=== PATIENT | male | born 1950 | race Caucasian/White ===

== ENCOUNTER 2017-11-08 10:15 | Inpatient (IN) | payer MEDICARE, MEDICAID ==
[~2017-11-08] VITALS: Ht 172.7 cm; Wt 117.4 kg
[2017-11-08] VITALS (19 sets, daily range): BP systolic 108–149; BP diastolic 51–68; PULSE 72–117; RESP 16–28; TEMP 98.1–98.9; O2SAT 93–100
[~2017-11-08 10:15] MED LIST: FURO1TAB93 PO; LEVO.05 PO; OXYC5 PO; POTA10SO13 PO; SPIR100 PO; TRAM50 PO
[2017-11-08] MEDS ORDERED: PANTOPRAZOLE INJ 80 MG in SODIUM CHLORIDE 0.9% INJ 35 ML IV ONE (10:44)
[2017-11-08] MEDS ORDERED: OCTREOTIDE INJ 500 MCG in SODIUM CHLORID 0.9% 500 ML INJ 500 ML IV SCH (10:44)
[2017-11-08] MEDS ORDERED: ONDANSETRON HCL 4 MG/2 ML VIAL IVP ONE (10:45)
[2017-11-08] MEDS ORDERED: OXYC1CAP PO (10:49)
[2017-11-08] MEDS ORDERED: CODE15 PO (10:49)
[2017-11-08] MEDS ORDERED: LACT10SO PO (10:49)
[2017-11-08] MEDS ORDERED: MORP1TAB24 PO (10:49)
--- NOTE | 2017-11-08 11:12 | PD ---
HPI Chief Complaint: GI Complaint Time Seen by Provider: 10:42 Travel History International Travel<30 days: No Contact w/Intl Traveler<30days: No Traveled to known affect area: No History of Present Illness HPI 67yo M with PMH of cirrhosis here with blood in stool and hematemesis today. Said he has generalized weakness and sob with exertion. Pt denies any chest pain if he just sits there. Denies any fever, focal weakness or numbness. Has chronic abdominal pain but feels worst in epigastric region today. PFSH Past Medical History Cardiovascular Problems: No Cirrhosis: Yes Endocrine: Yes Gastrointestinal Disorders: Yes Genitourinary: No Hepatitis: Yes Immune Disorder: No Musculoskeletal: Yes (SCOLIOSIS) Neurologic: No Psychiatric: No Reproductive: No Respiratory: No Thyroid Disease: Yes Past Surgical History Abdominal Surgery: Yes Appendectomy: Yes Other Surgery: Yes Social History Alcohol Use: No (hx of ETOH abuse) Tobacco Use: No Substance Use: Yes (history of drug abuse) Allergies-Medications (Allergen,Severity, Reaction): Coded Allergies: acetaminophen (Unverified Allergy, Intermediate, 11/08/17) upset stomach, rash, diarrhea Reported Meds & Prescriptions Reported Meds & Active Scripts Active Reported Oxycodone (Oxycodone HCl) 5 Mg Cap Unknown Dose PO Q4H PRN Codeine Sulfate 15 Mg Tab Unknown Dose PO Q6H PRN Lactulose Liq (Lactulose) 10 Gm/15 Ml Soln 30 Ml PO Q6H Morphine ER (Morphine Sulfate) 15 Mg Tab Unknown Dose PO BID Review of Systems Except as stated in HPI: all other systems reviewed are Neg Physical Exam Narrative GENERAL: 67yo M in moderate distress. SKIN: Pale. HEAD: Atraumatic. Normocephalic. EYES: Pupils equal and round. No scleral icterus. No injection or drainage. ENT: No nasal bleeding or discharge. Mucous membranes pink and moist. NECK: Trachea midline. No JVD. CARDIOVASCULAR: Mildly tachycardic. No murmur appreciated. RESPIRATORY: No accessory muscle use. Clear to auscultation. Breath sounds equal bilaterally. GASTROINTESTINAL: Abdomen softly distended. +TTP epigastric region. RECTAL: Dark red blood on rectal exam. MUSCULOSKELETAL: No obvious deformities. No clubbing. No cyanosis. No edema. NEUROLOGICAL: Awake and alert. No obvious cranial nerve deficits. Motor grossly within normal limits. Sensation intact. Normal speech. PSYCHIATRIC: Appropriate mood and affect; insight and judgment normal. Data Data Last Documented VS Vital Signs Date Time Temp Pulse Resp B/P (MAP) Pulse Ox O2 Delivery O2 Flow Rate FiO2 11/08/17 13:02 98.1 96 18 110/56 99 11/08/17 12:56 Nasal Cannula 2.00 Orders Orders Complete Blood Count With Diff (11/08/17 10:44) Comprehensive Metabolic Panel (11/08/17 10:44) Lipase (11/08/17 10:44) Prothrombin Time / Inr (Pt) (11/08/17 10:44) Act Partial Throm Time (Ptt) (11/08/17 10:44) Type And Screen (11/08/17 10:44) Red Blood Cells (Rbc) (11/08/17 10:44) Ondansetron Inj (Zofran Inj) (11/08/17 10:45) Sodium Chlorid 0.9%... W/Octreotide Inj (11/08/17 10:44) Sodium Chloride 0.9... W/Pantoprazole In (11/08/17 10:44) Sodium Chloride 0.9... W/Pantoprazole In (11/08/17 10:44) Electrocardiogram (11/08/17 ) Troponin I (11/08/17 11:12) Chest, Single Ap (11/08/17 ) Ammonia (11/08/17 11:34) Sodium Chlor 0.9% 250 Ml Inj (Ns 250 Ml (11/08/17 12:00) Blood Product Administration (11/08/17 11:47) Sodium Chlor 0.9% 250 Ml Inj (Ns 250 Ml (11/08/17 12:00) Red Blood Cells (Rbc) (11/08/17 11:56) Sodium Chlor 0.9% 250 Ml Inj (Ns 250 Ml (11/08/17 12:00) Lactulose Liq (Lactulose Liq) (11/08/17 13:00) Calcium Gluconate Inj (Calcium Gluconate (11/08/17 13:00) Ct Brain W/O Iv Contrast(Rout) (11/08/17 ) Ct Abd/Pel W/O Iv Contrast (11/08/17 ) Arterial Blood Gas (Abg) (11/08/17 ) Lactic Acid Sepsis Protocol (11/08/17 13:11) Piperacil-Tazo 3.375 Gm Premix (Zosyn 3. (11/08/17 13:15) Sodium Chlor 0.9% 1000 Ml Inj (Ns 1000 M (11/08/17 13:15) Sodium Chlor 0.9% 1000 Ml Inj (Ns 1000 M (11/08/17 13:15) Admit Order (Ed Use Only) (11/08/17 13:11) Admit To Inpatient (11/08/17 ) Code Status (11/08/17 13:11) Vital Signs (Adult) ROSALINDA.Q1H (11/08/17 13:11) Activity Bed Rest (11/08/17 13:11) Elevate Head Of Bed (11/08/17 13:11) Neuro Checks . ORDERED (11/08/17 13:11) Albuterol-Ipratropium Neb (Duoneb Neb) (11/08/17 16:00) Complete Blood Count With Diff (11/09/17 04:00) Comprehensive Metabolic Panel (11/09/17 04:00) Consult Nephrology (11/08/17 ) [employer] / Telemetry ROSALINDA.Q8H (11/08/17 13:11) ^ Initiate Protocol (11/08/17 13:11) Instruction (11/08/17 13:11) [facility] Nursing Information (11/08/17 13:15) Chlorhexidine 2% Cloth (Chlorhexidine 2% (11/09/17 04:00) Chlorhexidine 2% Cloth (Chlorhexidine 2% (11/08/17 13:15) Mrsa Pcr Surveillance (11/08/17 13:11) Docusate Sodium-Senna (Kinza-Colace) (11/08/17 21:00) Magnesium Hydroxide Liq (Milk Of Magnesi (11/08/17 13:15) Sennosides (Senokot) (11/08/17 13:15) Bisacodyl Supp (Dulcolax Supp) (11/08/17 13:15) Lactulose Liq (Lactulose Liq) (11/08/17 13:15) Inpatient Certification (11/08/17 ) Labs Laboratory Tests Test 11/08/17 10:45 11/08/17 11:40 White Blood Count 20.7 TH/MM3 Red Blood Count 2.90 MIL/MM3 Hemoglobin 5.9 GM/DL Hematocrit 20.0 % Mean Corpuscular Volume 69.0 FL Mean Corpuscular Hemoglobin 20.3 PG Mean Corpuscular Hemoglobin Concent 29.5 % Red Cell Distribution Width 20.8 % Platelet Count 283 TH/MM3 Mean Platelet Volume 8.5 FL Neutrophils (%) (Auto) 88.1 % Lymphocytes (%) (Auto) 5.6 % Monocytes (%) (Auto) 4.6 % Eosinophils (%) (Auto) 1.0 % Basophils (%) (Auto) 0.7 % Neutrophils # (Auto) 18.3 TH/MM3 Lymphocytes # (Auto) 1.2 TH/MM3 Monocytes # (Auto) 0.9 TH/MM3 Eosinophils # (Auto) 0.2 TH/MM3 Basophils # (Auto) 0.2 TH/MM3 CBC Comment DIFF FINAL Differential Comment Prothrombin Time 16.7 SEC Prothromb Time International Ratio 1.7 RATIO Activated Partial Thromboplast Time 21.4 SEC Blood Urea Nitrogen 82 MG/DL Creatinine 5.30 MG/DL Random Glucose 127 MG/DL Total Protein 6.3 GM/DL Albumin 2.8 GM/DL Calcium Level 7.4 MG/DL Alkaline Phosphatase 75 U/L Aspartate Amino Transf (AST/SGOT) 48 U/L Alanine Aminotransferase (ALT/SGPT) 45 U/L Total Bilirubin 0.7 MG/DL Sodium Level 135 MEQ/L Potassium Level 3.8 MEQ/L Chloride Level 101 MEQ/L Carbon Dioxide Level 11.2 MEQ/L Anion Gap 23 MEQ/L Estimat Glomerular Filtration Rate 11 ML/MIN Protein Corrected Calcium 7.8 MG/DL Troponin I 0.12 NG/ML Lipase 174 U/L Ammonia 262 MCMOL/L [facility] Medical Decision Making Medical Screen Exam Complete: Yes Emergency Medical Condition: Yes Interpretation(s) EKG: NSR 94bpm. Normal axis. No ST segment elevation or depression. PVC. Differential Diagnosis Variceal bleed vs. AVM vs. colitis Narrative Course 67yo M with GI bleed. HR is 100bpm and BP is 125/57. Pt is AAOx2 right now. Pt empirically given octreotide, protonix bolus and protonix drip. 2 units of PRBC ordered. Labs reviewed, leukocytosis at 20.7. H/H low at 5.9/20. Platelet count normal. BUN/creatinine elevated at 82/5.30 which is more elevated than prior in 2015. Bicarb is low at 11.2. Ammonia elevated at 262, lactulose ordered. Troponin mildly elevated at 0.12, may be secondary to PAULINA. Lipase normal. Pt has 2 large bore peripheral IVs, one 18 gauge and one 20 gauge. Pt initially ordered 2 units of PRBC but after H/H came back, ordered another 2 units. CXR negative. I discussed case with Dr. Matos and he wanted to add ABG, lactic acid, given 2 liters NS IVF, as well as CT brain and CT a/p which were ordered. Also covered with zosyn. Also discussed with GI Dr. Anderson and he is aware of the patient. CT brain negative. CT a/p showed cirrhosis. Critical Care Narrative Aggregate critical care time was 50 minutes. Time to perform other separately billable procedures was not included in the critical care time. My time did not include minutes spent treating any other patients simultaneously or on activities that did not directly contribute to the patient's treatment. The services I provided to this patient were to treat and/or prevent clinically significant deterioration that could result in: cardiovascular collapse or . I provided critical care services requiring my management, as noted below: Chart data review, documentation time, medication orders and management, vital sign assessments/reviewing monitor data, ordering and reviewing lab tests, ordering and interpreting/reviewing x-rays and diagnostic studies, care of the patient and discussion of the patient with the admitting physicians. Diagnosis Primary Impression: GI bleed Qualified Codes: K92.2 - Gastrointestinal hemorrhage, unspecified Additional Impression: PAULINA (acute kidney injury) Admitting Information Admitting Physician Requests: Madelaine Dial DO Nov 08, 2017 11:12
[2017-11-08] MEDS: PANTOPRAZOLE INJ 80 MG in SODIUM CHLORIDE 0.9% INJ 100 ML IV SCH ×2 (11:14→20:44)
[2017-11-08 11:43] LABS: AUTOMATED NEUTROPHIL # 18.3 TH/MM3 (1.8-7.7); BASOPHIL # 0.2 TH/MM3 (0-0.2); BASOPHIL % 0.7 % (0.0-2.0); EOSINOPHIL # 0.2 TH/MM3 (0-0.4); LYMPH % 5.6 % (9.0-44.0); LYMPHOCYTE # 1.2 TH/MM3 (1.0-4.8); MEAN CORPUSCULAR HEMOGLOBIN 20.3 PG (27.0-34.0); MEAN PLATELET VOLUME 8.5 FL (7.0-11.0); MONO % 4.6 % (0.0-8.0); MONOCYTE # 0.9 TH/MM3 (0-0.9); NEUT % 88.1 % (16.0-70.0); PLATELET COUNT 283 TH/MM3 (150-450); RED CELL DISTRIBUTION WIDTH 20.8 % (11.6-17.2); WHITE BLOOD COUNT 20.7 TH/MM3 (4.0-11.0)
[2017-11-08 11:45] LABS: MEAN CORPUSCULAR HGB CONC 29.5 % (32.0-36.0)
[2017-11-08 11:48] LABS: HEMOGLOBIN 5.9 GM/DL (13.0-17.0)
[2017-11-08 11:53] LABS: INTERNATIONAL NORMALIZED RATIO 1.7 RATIO; PROTHROMBIN TIME - PATIENT 16.7 SEC (9.8-11.6)
[2017-11-08] MEDS ORDERED: SODIUM CHLOR 0.9% 250 ML INJ 250 ML IV ONE ×3 (12:00)
--- NOTE | 2017-11-08 12:11 | RADRPT ---
EXAM DATE/TIME: 11/08/2017 11:52 [facility] COMPARISON: No previous studies available for comparison. INDICATIONS : Shortness of breath. MEDICAL HISTORY : Cirrhosis. Hepatitis. SURGICAL HISTORY : None. ENCOUNTER: Initial ACUITY: 1 day PAIN SCORE: 3/10 LOCATION: Bilateral upper chest FINDINGS: A single portable frontal view of the chest shows blurring motion artifact. Heart is normal in size. Pulmonary vasculature is poorly evaluated but appears grossly unremarkable. Lungs are grossly clear. No effusions. A scoliotic and degenerative spine. CONCLUSION: Limited study. No acute cardiopulmonary disease. Bill Blackburn Jr., MD on November 08, 2017 at 12:01 Board Certified Radiologist. This report was verified electronically.
[2017-11-08 12:18] LABS: ALBUMIN 2.8 GM/DL (3.4-5.0); BICARBONATE 11.2 MEQ/L (21.0-32.0); CALCIUM 7.4 MG/DL (8.5-10.1); CALCIUM-PROTEIN CORRECTED 7.8 MG/DL (8.5-10.1); CREATININE 5.3 MG/DL (0.60-1.30); TOTAL BILIRUBIN ADULT 0.7 MG/DL (0.2-1.0); TOTAL PROTEIN 6.3 GM/DL (6.4-8.2)
[2017-11-08] MEDS ORDERED: LACTULOSE SYRUP 20 GM/30 ML CUP PO ONE (13:00)
[2017-11-08] MEDS ORDERED: CALCIUM GLUCONATE INJ 1 GM in DEXTROSE 5% IN WATER 100ML INJ 100 ML IV ONE ×2 (13:00)
[2017-11-08] MEDS ORDERED: MISCELLANEOUS NURSING INFORMATION XX SCH (13:15)
[2017-11-08] MEDS ORDERED: SODIUM CHLOR 0.9% 1000 ML INJ 1,000 ML IV ONE ×4 (13:15→15:10)
[2017-11-08] MEDS ORDERED: CHLORHEXIDINE GLUCONATE 2 % 1 PACK (2 CLOTHS) TOP PRN (13:15)
[2017-11-08] MEDS ORDERED: SENNOSIDES 8.6 MG TAB PO PRN (13:15)
[2017-11-08] MEDS ORDERED: BISACODYL 10 MG SUPP RECTAL PRN (13:15)
[2017-11-08] MEDS ORDERED: LACTULOSE SYRUP 20 GM/30 ML CUP PO PRN (13:15)
[2017-11-08] MEDS ORDERED: PIPERACIL-TAZO 3.375 GM PREMIX 50 ML IV ONE (13:15)
[2017-11-08] MEDS ORDERED: MAGNESIUM HYDROXIDE SUSP 30 ML CUP PO PRN (13:15)
[2017-11-08] MEDS ORDERED: DEXTROSE 50% IN WATER 50 ML VIAL(D50) IV PUSH PRN (14:00)
[2017-11-08] MEDS ORDERED: GLUCAGON 1 MG/ML VIAL OTHER PRN (14:00)
[2017-11-08] MEDS ORDERED: SODIUM CHLORIDE 0.9% FLUSH 10 ML FLUSH IV FLUSH PRN (14:15)
--- NOTE | 2017-11-08 14:23 | PD.CONS ---
HPI History of Present Illness This is a 67 year old male with hx cirrhosis, hep c, etoh abuse who presented for weakness, SOB, hematemesis and rectal bleeding. he was found to have NH 262. yesterday he had n/v with dark blood and rectal bleeding, admits tarry stool and epigastric pain as well. Pt cannot provide further details, he is confused. When asked what year it is he says '[birth year]' and when asked where he is he says '81.' He was evaluated by our service in 2014 for elevated LFTs and had liver w/u negative except for hep C, suggesting ETOH as cause for his cirrhosis. (Ria Cole) PFSH Past Medical History cirrhosis hep C Past Surgical History unk (Ria Cole) Coded Allergies: acetaminophen (Unverified Allergy, Intermediate, 11/08/17) upset stomach, rash, diarrhea Family History unk Social History hx etoh abuse, unclear if he drinks currently (Ria Cole) Review of Systems Gastrointestinal: COMPLAINS OF: Abdominal pain, Black stools, Bloody stools, Nausea, Vomiting, Hematemesis otherwise noncontributory (Ria Cole) GI Exam Vitals I&O Vital Signs Date Time Temp Pulse Resp B/P (MAP) Pulse Ox O2 Delivery O2 Flow Rate FiO2 11/08/17 13:17 98.1 94 28 115/51 98 11/08/17 13:02 98.1 96 18 110/56 99 11/08/17 12:56 101 27 110/56 (74) 100 Nasal Cannula 2.00 11/08/17 11:10 117 27 112/59 (76) 100 Room Air 11/08/17 10:40 98.1 100 25 125/57 (79) 98 Room Air Imaging Last Impressions Chest X-Ray 11/08/17 0000 Signed Impressions: Service Date/Time: Wednesday, November 08, 2017 11:52 - CONCLUSION: Limited study. No acute cardiopulmonary disease. Bill Blackburn Jr., MD Laboratory Test 11/08/17 10:45 11/08/17 11:40 11/08/17 13:35 White Blood Count 20.7 TH/MM3 Red Blood Count 2.90 MIL/MM3 Hemoglobin 5.9 GM/DL Hematocrit 20.0 % Mean Corpuscular Volume 69.0 FL Mean Corpuscular Hemoglobin 20.3 PG Mean Corpuscular Hemoglobin Concent 29.5 % Red Cell Distribution Width 20.8 % Platelet Count 283 TH/MM3 Mean Platelet Volume 8.5 FL Neutrophils (%) (Auto) 88.1 % Lymphocytes (%) (Auto) 5.6 % Monocytes (%) (Auto) 4.6 % Eosinophils (%) (Auto) 1.0 % Basophils (%) (Auto) 0.7 % Neutrophils # (Auto) 18.3 TH/MM3 Lymphocytes # (Auto) 1.2 TH/MM3 Monocytes # (Auto) 0.9 TH/MM3 Eosinophils # (Auto) 0.2 TH/MM3 Basophils # (Auto) 0.2 TH/MM3 CBC Comment DIFF FINAL Differential Comment Prothrombin Time 16.7 SEC Prothromb Time International Ratio 1.7 RATIO Activated Partial Thromboplast Time 21.4 SEC Blood Urea Nitrogen 82 MG/DL Creatinine 5.30 MG/DL Random Glucose 127 MG/DL Total Protein 6.3 GM/DL Albumin 2.8 GM/DL Calcium Level 7.4 MG/DL Alkaline Phosphatase 75 U/L Aspartate Amino Transf (AST/SGOT) 48 U/L Alanine Aminotransferase (ALT/SGPT) 45 U/L Total Bilirubin 0.7 MG/DL Sodium Level 135 MEQ/L Potassium Level 3.8 MEQ/L Chloride Level 101 MEQ/L Carbon Dioxide Level 11.2 MEQ/L Anion Gap 23 MEQ/L Estimat Glomerular Filtration Rate 11 ML/MIN Protein Corrected Calcium 7.8 MG/DL Troponin I 0.12 NG/ML Lipase 174 U/L Ammonia 262 MCMOL/L Blood Gas Puncture Site LT RADIAL Blood Gas Patient Temperature 98.6 Blood Gas HCO3 13 mmol/L Blood Gas Base Excess -12.1 mmol/L Blood Gas Oxygen Saturation 92 % Arterial Blood pH 7.30 Arterial Blood Partial Pressure CO2 27 mmHg Arterial Blood Partial Pressure O2 81 mmHG Arterial Blood Oxygen Content 7.4 Vol % Arterial Blood Carboxyhemoglobin 2.1 % Arterial Blood Methemoglobin 0.7 % Blood Gas Hemoglobin 5.6 G/DL Oxygen Delivery Device ROOM AIR Blood Gas Inspired Oxygen 21 % Physical Examination HEENT: PERRL normocephalic; atraumatic; no jaundice. CHEST: CTA CARDIAC: RRR ABDOMEN: Soft, distended, mild epigastric TTP; bowel sounds are present in all four quadrants. EXTREMITIES: No clubbing, cyanosis, or edema. SKIN: Normal; no rash; no jaundice. 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 He is poor historian. cannot tell me when and if he had EGD or colonoscopy. INR is 1.7 - elevated NH - 262, started on QID lactulose - anemia - hgb 5.9 microcytic - hx cirrhosis, hep c, etoh abuse PLAN - octreotide gtt - continue protonix gtt - continue lactulose - EGD and colonoscopy when more alert, unless active bleeding - notify GI of active bleeding - pending transfusion PRBC, FFP - monitor labs - further recs to follow pt seen by myself and Dr Anderson and this note is on his behalf (Ria Cole) Physician Comments Seen and examined in the ER, confused with early encephalopathy, coagulopathy and no recent hematemesis. Will stabilize over night and plan EGD in AM. Thank you for the consult. (Sumit Anderson MD) Ria Cole Nov 08, 2017 14:23 Sumit Anderson MD Nov 08, 2017 15:32
--- NOTE | 2017-11-08 14:36 | RADRPT ---
EXAM DATE/TIME: 11/08/2017 14:26 [facility] COMPARISON: No previous studies available for comparison. INDICATIONS : Altered mental status, weakness RADIATION DOSE: 56.35 CTDIvol (mGy) MEDICAL HISTORY : Seizures. Cirrhosis. SURGICAL HISTORY : None. ENCOUNTER: Initial ACUITY: 1 day PAIN SCALE: 0/10 LOCATION: cranial TECHNIQUE: Multiple contiguous axial images were obtained of the head. Using automated exposure control and adj ustment of the mA and/or kV according to patient size, radiation dose was kept as low as reasonably a chievable to obtain optimal diagnostic quality images. DICOM format image data is available electro nically for review and comparison. FINDINGS: CEREBRUM: The ventricles are normal for age. No evidence of midline shift, mass lesion, hemorrhage or acute in farction. No extra-axial fluid collections are seen. There is decreased density in the periventricul ar white matter consistent with small vessel vascular disease not unexpected in a patient of this age . POSTERIOR FOSSA: The cerebellum and brainstem are intact. The 4th ventricle is midline. The cerebellopontine angle i s unremarkable. There is prominent calcification of the vertebrobasilar segment EXTRACRANIAL: The visualized portion of the orbits is intact. SKULL: The calvaria is intact. No evidence of skull fracture. CONCLUSION: 1. No evidence of acute intracranial pathology. No masses are identified. Baldomero Stark MD on November 08, 2017 at 14:32 Board Certified Radiologist. This report was verified electronically.
--- NOTE | 2017-11-08 14:48 | RADRPT ---
EXAM DATE/TIME: 11/08/2017 14:28 [facility] COMPARISON: No previous studies available for comparison. INDICATIONS : Diarrhea and dark red emesis ORAL CONTRAST: No oral contrast ingested. RADIATION DOSE: 15.47 CTDIvol (mGy) MEDICAL HISTORY : Cirrhosis. Seizures. SURGICAL HISTORY : None. ENCOUNTER: Initial ACUITY: 1 day PAIN SCALE: 5/10 LOCATION: diffuse abdomen TECHNIQUE: Volumetric scanning of the abdomen and pelvis was performed. Using automated exposure control and ad justment of the mA and/or kV according to patient size, radiation dose was kept as low as reasonably achievable to obtain optimal diagnostic quality images. DICOM format image data is available electro nically for review and comparison. FINDINGS: LOWER LUNGS: The visualized lower lungs are clear. LIVER: There is a lobulated contour to the liver. The liver has a heterogeneous background. No mass or ducta l dilatation. Small calcified gallstones layering within an otherwise normal appearing gallbladder. SPLEEN: The spleen is enlarged measuring 16.2 cm. No splenic mass. PANCREAS: Within normal limits. KIDNEYS: Normal in size and shape. There is no mass, stone, or hydronephrosis. ADRENAL GLANDS: Within normal limits. VASCULAR: There is no aortic aneurysm. BOWEL/MESENTERY: The stomach, small bowel, and colon demonstrate no acute abnormality. There is no free intraperitone al air or fluid. ABDOMINAL WALL: Within normal limits. RETROPERITONEUM: There is no lymphadenopathy. BLADDER: No wall thickening or mass. REPRODUCTIVE: Within normal limits. INGUINAL: There is no lymphadenopathy or hernia. MUSCULOSKELETAL: Within normal limits for patient age. Scoliotic curvature noted. CONCLUSION: 1. Cirrhosis. 2. Splenomegaly. 3. Cholelithiasis. Bill Blackburn Jr., MD on November 08, 2017 at 14:39 Board Certified Radiologist. This report was verified electronically.
--- NOTE | 2017-11-08 14:57 | MH ---
cc: Dianna Matos MD DATE OF ADMISSION: 11/08/2017 HISTORY OF PRESENT ILLNESS: The patient is a 67-year-old male with past medical history of cirrhosis of liver secondary to hepatitis C and ETOH abuse who presented to [facility] ED with generalized weakness and shortness of breath with exertion. In addition, patient reports abdominal pain and generalized edema. He denies any chest pain, cough, or any constitutional symptoms. In addition, he denies any nausea or vomiting. On arrival to the ED, he was tachycardic with heart rate of 101-117. His laboratory data is significant for acute renal failure with BUN 82, creatinine 5.30, and hemoglobin of 5.9. Also, he was found to have leukocytosis with a WBC of 20.7 and elevated ammonia level of 262. A chest x-ray in the ED showed no evidence of any acute cardiopulmonary disease. Patient was placed on Protonix and octreotide drips in the ED. In addition, 4 units of packed red blood cells has been ordered. He is on 2 L oxygen with saturation of 98-100%. ABG was performed on room air, which showed metabolic acidosis with a pH of 7.30, CO2 of 27, PaO2 81, bicarb 13, sats 92%. PAST MEDICAL HISTORY: Significant for cirrhosis of the liver, hepatitis C. PAST SURGICAL HISTORY: Previous appendectomy, previous paracentesis x 2. ALLERGIES: ACETAMINOPHEN. FAMILY HISTORY: Not contributory to current present illness. SOCIAL HISTORY: Patient has history of ETOH abuse and history of drug abuse. REVIEW OF SYSTEMS: As per HPI. Rest of review of systems limited, as patient is a poor historian. PHYSICAL EXAMINATION: A 67-year-old male, lying in bed, in no acute respiratory distress. VITAL SIGNS: Temperature 98.1, pulse of 94, respiratory rate of 28, blood pressure 115/51, saturation 98%. HEENT: Atraumatic, normocephalic. Pupils equal, round, reactive to light and accommodation. Extraocular muscles intact. Conjunctivae pink, nonicteric sclerae. Dry mucous membranes. NECK: Supple. No JVD, adenopathy, or thyromegaly. Trachea in the midline. CARDIOVASCULAR: Tachycardic. Normal S1, S2. No murmurs, rubs, or gallops noted. PULMONARY: Bilateral equal air entry. No rales or wheezing. ABDOMEN: Soft, obese, nontender. Distended. Positive bowel sounds. EXTREMITIES: No cyanosis, clubbing, or edema. NEUROLOGIC: No focal motor or sensory deficit. LABORATORY DATA: WBC 20.7, hemoglobin 5.9, hematocrit 20, platelet count 283. Sodium 135, potassium 3.8, chloride 101, CO2 11, BUN 23, creatinine 5.3, 82, glucose 127, AST 48, total bilirubin 0.7, ALT 45. Ammonia level 262. Lipase 174. INR 1.7. PT 16.7, PTT 21.4. Chest x-ray showed no evidence of acute cardiopulmonary disease. IMPRESSION: 1. Gastrointestinal bleed. 2. Severe anemia. 3. Acute kidney injury. 4. Leukocytosis. 5. Coagulopathy secondary to liver disease. 6. Cirrhosis of the liver. 7. History of hepatitis C. 8. ETOH abuse. RECOMMENDATIONS: 1. Monitor neuro status closely and avoid any sedatives. 2. Will obtain a CT scan of the brain without contrast and check random urine drug screen. 3. Place on lactulose 30 mL q.i.d. and rifaximin 550 mg b.i.d. for elevated ammonia level. 4. Oxygen p.r.n. to maintain sats above 92%. 5. Bronchodilators in the form of DuoNeb q.6. 6. Monitor heart rate and blood pressure closely and maintain MAP greater than 65 mmHg. Check lactic acid level. Will give 2 L of normal saline and place on bicarb drip. 7. Monitor renal function, I's and O's, and avoid nephrotoxins. IV fluids as stated above. 8. Repeat BMP in 6 hours. 9. Consult nephrology service and will obtain CT scan of the abdomen and pelvis without contrast for evaluation of ascites and to rule out hydronephrosis. 10. Patient scheduled to receive 4 units of PRBCs. Will check H and H 1 hour post-transfusion. 11. Continue with Protonix and octreotide drip. Will consult to GI service, as patient will likely need an upper endoscopy and possible colonoscopy. 12. Monitor LFTs and continue with lactulose and rifaximin as stated above. 13. Keep n.p.o. for now. 14. Place on empiric antibiotics in the form of Zosyn and monitor for signs of infection which include fever and WBC. Check blood cultures x 2 sets. Urinalysis with culture if indicated. A chest x-ray in the ED is negative for acute cardiopulmonary disease. 15. Sliding scale insulin with Accu-Cheks for glycemic control. 16. GI prophylaxis: Patient will be on Protonix drip. 17. DVT prophylaxis with SCDs. Anticoagulation prophylaxis contraindicated in the setting of severe anemia and GI bleed. 18. Further recommendations will be based on hospital course. MD DEVIKA Barnett/JAZZMINE/rr , 02:09 PM , 02:30 PM MTDD
[2017-11-08] MEDS ORDERED: SODIUM BICARBONATE 8.4% INJ 50 MEQ/50 ML SYR IV PUSH ONE (15:10)
[2017-11-08] MEDS: SODIUM CHLORIDE 0.9% FLUSH 10 ML FLUSH IV FLUSH SCH ×2 (15:27→21:14)
[2017-11-08] MEDS ORDERED: OCTREOTIDE INJ 500 MCG in SODIUM CHLORID 0.9% 500 ML INJ 499.5 ML IV SCH (16:00)
[2017-11-08] MEDS: RESP: ALBUTEROL 2.5 MG/IPRATROPIUM 0.5 MG NEB (SCH) INH ×2 (16:00→21:31)
[2017-11-08] MEDS: SODIUM BICARBONATE 8.4% INJ 100 MEQ in DEXTROSE 5% IN WATE 1000ML INJ 1,000 ML IV SCH ×2 (16:00)
[2017-11-08 16:24] LABS: LACTIC ACID SEPSIS PROTOCOL 6.3 mmol/L (0.4-2.0)
[2017-11-08] MEDS: RIFAXIMIN 550 MG TAB PO SCH ×2 (16:45→21:13)
[2017-11-08] MEDS ORDERED: LORazepam 2 MG/ML VIAL ONE ×2 (17:39→18:31)
[2017-11-08] MEDS: LACTULOSE SYRUP 20 GM/30 ML CUP PO SCH ×2 (17:46→21:14)
[2017-11-08] MEDS ORDERED: LORazepam 2 MG/ML VIAL IV PUSH PRN (18:30)
[2017-11-08] MEDS ORDERED: DEXMEDETOMIDINE INJ 200 MCG in SODIUM CHLORIDE 0.9% INJ 50 ML IV PRN (18:30)
[2017-11-08] MEDS ORDERED: MIDAZOLAM HCL 5 MG/ML VIAL (1 ML) ONE (18:36)
[2017-11-08] MEDS ORDERED: ETOMIDATE 40 MG/20 ML VIAL ONE (18:36)
[2017-11-08] MEDS ORDERED: ROCURONIUM INJ 50 MG/5 ML VIAL ONE (18:37)
[2017-11-08] MEDS ORDERED: NOREPINEPHRINE-DEXTROSE DRIP 250 ML IV ONE (18:39)
[2017-11-08] MEDS ORDERED: LORazepam 2 MG/ML VIAL IV ONE (18:45)
[2017-11-08] MEDS ORDERED: PROPOFOL 500 MG/50 ML INJ 50 ML ONE (18:47)
--- NOTE | 2017-11-08 18:48 | PD.PROCEDR ---
Procedure Note Procedure Emergency intubation INTUBATION: The patient was put in optimal position for the procedure. Rapid sequence intubation was initiated by me using 20 milligrams of etomidate IV and 10 milligrams of Versed IV, 50 mg IV Rocuronium. DL with Mac 4 blade Grade 1 view. The patient was intubated with a 8.0 cuffed endotracheal tube. Tube placement was confirmed by visualization of the tube and balloon passing through the cords, capnometry and subsequent chest x-ray. Breath sounds were equal and well aerated bilaterally postintubation. No breath sounds over stomach. Patient tolerated procedure well. Orion Hernandez MD Nov 08, 2017 18:48
--- NOTE | 2017-11-08 19:19 | PD.CONS ---
HPI Service Nephrology Consult Requested By Dr. Quispe Reason for Consult PAULINA Primary Care Physician No Primary Care Physician History of Present Illness The patient is a 67 yo [place] male who presented to the ED 11/08 with complaints of weakness, SOB on exertion, abdominal pain, and hematemesis. He has a known hx of HCV, cirrhosis, and EtOH abuse. The patient was emergently intubated this evening. No family present at time of exam so no other information could be obtained. SCr at 5.30 with GFR 11 at admission. Last labs available were from January 2015 showing normal SCr of 1.01. No other admissions at this institution since January. Home medications listed as oxycodone, codeine, lactulose, and morphine. UDS pending at this time. Noted to be profoundly acidotic on admission and was given 2 amps of bicarb and started on IVF of D5W with 100meq bicarb at 125mL/hr. Review of Systems ROS Limitations: Intubated Past Family Social History Allergies: Coded Allergies: acetaminophen (Unverified Allergy, Intermediate, 11/08/17) upset stomach, rash, diarrhea Past Medical History Cirrhosis HCV EtOH abuse Noted illicit drug use in charts Past Surgical History Appendectomy Paracentesis x2 by charts Reported Medications Oxycodone (Oxycodone HCl) 5 Mg Cap Unknown Dose PO Q4H PRN Codeine Sulfate 15 Mg Tab Unknown Dose PO Q6H PRN Lactulose Liq (Lactulose) 10 Gm/15 Ml Soln 30 Ml PO Q6H Morphine ER (Morphine Sulfate) 15 Mg Tab Unknown Dose PO BID Active Ordered Medications Current Medications Medications (Trade) Dose Ordered Sig/Klaus Route Start Time Stop Time Status Last Admin Pantoprazole Sodium 80 mg/ Sodium Chloride 100 ml @ 10 mls/hr Q10H IV 11/08/17 10:44 11/08/17 11:14 Sodium Chloride 250 ml @ 15 mls/hr ONCE ONCE IV 11/08/17 12:00 11/09/17 04:39 11/08/17 13:12 Sodium Chloride 250 ml @ 15 mls/hr ONCE ONCE IV 11/08/17 12:00 11/09/17 04:39 Sodium Chloride 250 ml @ 15 mls/hr ONCE ONCE IV 11/08/17 12:00 11/09/17 04:39 (Duoneb Neb) 1 ampule Q6HR NEB INH 11/08/17 16:00 Miscellaneous Information 1 Q361D XX 11/08/17 13:15 (Chlorhexidine 2% Cloth) 3 pack Taper DAILY@04 TOP 11/09/17 04:00 11/05/18 03:59 (Chlorhexidine 2% Cloth) 3 pack UNSCH PRN TOP 11/08/17 13:15 (Kinza-Colace) 1 tab BID PO 11/08/17 21:00 (Milk Of Magnesia Liq) 30 ml Q12H PRN PO 11/08/17 13:15 (Senokot) 17.2 mg Q12H PRN PO 11/08/17 13:15 (Dulcolax Supp) 10 mg DAILY PRN RECTAL 11/08/17 13:15 (Lactulose Liq) 30 ml DAILY PRN PO 11/08/17 13:15 Piperacillin Sod/ Tazobactam Sod 50 ml @ 100 mls/hr Q8H IV 11/08/17 22:00 Sodium Bicarbonate 100 meq/Dextrose 1,100 ml @ 125 mls/hr Q8H48M IV 11/08/17 16:00 (D50w (Vial) Inj) 50 ml UNSCH PRN IV PUSH 11/08/17 14:00 (Glucagon Inj) 1 mg UNSCH PRN OTHER 11/08/17 14:00 (NovoLIN R SUPPLEMENTAL SCALE) 1 Q4H SQ 11/08/17 16:00 (Lactulose Liq) 30 ml QID PO 11/08/17 18:00 11/08/17 17:46 (Xifaxan) 550 mg BID PO 11/08/17 15:30 11/08/17 16:45 (NS Flush) 2 ml UNSCH PRN IV FLUSH 11/08/17 14:15 (NS Flush) 2 ml BID IV FLUSH 11/08/17 14:15 11/08/17 15:27 Octreotide Acetate 500 mcg/ Sodium Chloride 500 ml @ 25 mls/hr Q20H IV 11/08/17 16:00 11/13/17 15:11 Dexmedetomidine HCl 200 mcg/ Sodium Chloride 52 ml @ 6.34 mls/hr TITRATE PRN IV 11/08/17 18:30 (Ativan Inj) 2 mg Q3H PRN IV PUSH 11/08/17 18:30 Family History NC Social History Not obtainable d/t clinical status, but noted in charts with hx of EtOH and illcit drug use hx. Physical Exam Vital Signs Vital Signs Date Time Temp Pulse Resp B/P (MAP) Pulse Ox O2 Delivery O2 Flow Rate FiO2 11/08/17 18:58 100 100 11/08/17 18:07 98.9 106 22 146/67 100 11/08/17 17:56 98 Nasal Cannula 3.00 11/08/17 17:31 98.8 98 17 130/65 100 11/08/17 17:08 98.9 99 16 149/68 99 11/08/17 17:02 98.9 99 21 149/68 93 11/08/17 16:52 98.9 97 27 128/67 99 11/08/17 15:07 91 21 139/63 (88) 98 11/08/17 14:15 93 22 119/59 (79) 96 Nasal Cannula 2.00 11/08/17 13:55 96 21 108/62 (77) 96 Nasal Cannula 2.00 11/08/17 13:17 98.1 94 28 115/51 98 11/08/17 13:02 98.1 96 18 110/56 99 11/08/17 12:56 101 27 110/56 (74) 100 Nasal Cannula 2.00 11/08/17 11:10 117 27 112/59 (76) 100 Room Air 11/08/17 10:40 98.1 100 25 125/57 (79) 98 Room Air Physical Exam GENERAL: Intubated and sedated SKIN: Warm and dry. HEAD: Atraumatic. Normocephalic. EYES: Pupils equal and round. No scleral icterus. No injection or drainage. ENT: No nasal bleeding or discharge. Mucous membranes pink and moist. NECK: Trachea midline. No JVD. CARDIOVASCULAR: Mildly tachy. No murmurs RESPIRATORY: No accessory muscle use. Clear to auscultation. Breath sounds equal bilaterally. GASTROINTESTINAL: Abdomen soft, non-tender, but distended MUSCULOSKELETAL: Extremities without clubbing, cyanosis, or edema. No obvious deformities. NEUROLOGICAL: Intubated and sedated PSYCHIATRIC: Intubated and sedated Laboratory Laboratory Tests Test 11/08/17 10:45 11/08/17 11:40 11/08/17 13:35 11/08/17 15:13 White Blood Count 20.7 Red Blood Count 2.90 Hemoglobin 5.9 Hematocrit 20.0 Mean Corpuscular Volume 69.0 Mean Corpuscular Hemoglobin 20.3 Mean Corpuscular Hemoglobin Concent 29.5 Red Cell Distribution Width 20.8 Platelet Count 283 Mean Platelet Volume 8.5 Neutrophils (%) (Auto) 88.1 Lymphocytes (%) (Auto) 5.6 Monocytes (%) (Auto) 4.6 Eosinophils (%) (Auto) 1.0 Basophils (%) (Auto) 0.7 Neutrophils # (Auto) 18.3 Lymphocytes # (Auto) 1.2 Monocytes # (Auto) 0.9 Eosinophils # (Auto) 0.2 Basophils # (Auto) 0.2 CBC Comment DIFF FINAL Differential Comment Prothrombin Time 16.7 Prothromb Time International Ratio 1.7 Activated Partial Thromboplast Time 21.4 Blood Urea Nitrogen 82 Creatinine 5.30 Random Glucose 127 Total Protein 6.3 Albumin 2.8 Calcium Level 7.4 Alkaline Phosphatase 75 Aspartate Amino Transf (AST/SGOT) 48 Alanine Aminotransferase (ALT/SGPT) 45 Total Bilirubin 0.7 Sodium Level 135 Potassium Level 3.8 Chloride Level 101 Carbon Dioxide Level 11.2 Anion Gap 23 Estimat Glomerular Filtration Rate 11 Protein Corrected Calcium 7.8 Troponin I 0.12 Lipase 174 Ammonia 262 Blood Gas Puncture Site LT RADIAL Blood Gas Patient Temperature 98.6 Blood Gas HCO3 13 Blood Gas Base Excess -12.1 Blood Gas Oxygen Saturation 92 Arterial Blood pH 7.30 Arterial Blood Partial Pressure CO2 27 Arterial Blood Partial Pressure O2 81 Arterial Blood Oxygen Content 7.4 Arterial Blood Carboxyhemoglobin 2.1 Arterial Blood Methemoglobin 0.7 Blood Gas Hemoglobin 5.6 Oxygen Delivery Device ROOM AIR Blood Gas Inspired Oxygen 21 Lactic Acid Level 6.3 Result Diagram: 11/08/17 1045 11/08/17 1045 Imaging Last Impressions Head CT 11/08/17 0000 Signed Impressions: Service Date/Time: Wednesday, November 08, 2017 14:26 - CONCLUSION: 1. No evidence of acute intracranial pathology. No masses are identified. Baldomero Stark MD Chest X-Ray 11/08/17 0000 Signed Impressions: Service Date/Time: Wednesday, November 08, 2017 11:52 - CONCLUSION: Limited study. No acute cardiopulmonary disease. Bill Blackburn Jr., MD Abdomen/Pelvis CT 11/08/17 0000 Signed Impressions: Service Date/Time: Wednesday, November 08, 2017 14:28 - CONCLUSION: 1. Cirrhosis. 2. Splenomegaly. 3. Cholelithiasis. Bill Blackburn Jr., MD Assessment and Plan Problem List: (1) Acute renal failure (ARF) ICD Codes: N17.9 - Acute kidney failure, unspecified Plan: Renal failure likely multifactorial: hemodynamic related to apparent GIB , potential sepsis, possibility of hepatorenal syndrome given hx of cirrhosis, potential of GN given hx of HCV. UDS pending so uncertain if illicit drug use contributing. Continue on IVF with bicarbonate to improve acid/base status. Repeat renal panel in the AM. Check complements, urine for eosinophils, cryoglobulin, UPCR, UA, CPK levels. Monitor I&Os closely. Uncertain at this point if dialytic intervention may be required. Medications should be adjusted for the patient's renal decline. Avoid nephrotoxins such as iodinated contrast dyes and NSAIDs. Avoid gadolinium. (2) Anemia ICD Codes: D64.9 - Anemia, unspecified Plan: Potential EGD in the AM. Received blood today. (3) Acidosis, metabolic ICD Codes: E87.2 - Acidosis Plan: Continue on bicarbonate IV (4) Cirrhosis ICD Codes: K74.60 - Cirrhosis Status: Chronic (5) Hepatitis C ICD Codes: B19.20 - Hepatitis C Status: Chronic Plan: As above, check UPCR, cryoglobulins Shanna Lai Nov 08, 2017 19:19
--- NOTE | 2017-11-08 19:49 | RADRPT ---
EXAM DATE/TIME: 11/08/2017 18:51 [facility] COMPARISON: CHEST SINGLE AP, November 08, 2017, 11:52. INDICATIONS : Post intubation. MEDICAL HISTORY : Cirrhosis. Hepatitis. SURGICAL HISTORY : None. ENCOUNTER: Subsequent ACUITY: 1 day PAIN SCORE: Non-responsive. LOCATION: Bilateral chest FINDINGS: ET tube tip is 2.8 cm above the evangelist. Gastric tube tip projects in the upper chest tip approximate ly at the level of the head of the clavicles and the side port in the neck. Moderate scoliosis conve x towards the right, stable. No infiltrates. There is indistinctness and mild engorgement of the ce ntral bronchopulmonary markings. CONCLUSION: 1. ET tube in good position. 2. Gastric tube is high in position with the tip at the level of the clavicles. Bill Palmer MD on November 08, 2017 at 19:46 Board Certified Radiologist. This report was verified electronically.
[2017-11-08] MEDS: INSULIN NovoLIN REGULAR SUPPLEMENTAL SCALE SQ SCH (20:00)
[2017-11-08] MEDS: DOCUSATE SODIUM 50 MG/SENNA 8.6 MG TAB PO SCH (21:00)
[2017-11-08] MEDS: PROPOFOL 1000 MG/100 ML IV PRN (21:13)
[2017-11-08] MEDS: PIPERACIL-TAZO 2.25 GM PREMIX 50 ML IV SCH (21:13)
[2017-11-08 22:02] LABS: INTERNATIONAL NORMALIZED RATIO 1.7 RATIO; PROTHROMBIN TIME - PATIENT 17.4 SEC (9.8-11.6)
[2017-11-08 22:29] LABS: BICARBONATE 17.2 MEQ/L (21.0-32.0); CALCIUM 7.2 MG/DL (8.5-10.1); CREATININE 4.44 MG/DL (0.60-1.30)
[2017-11-08 22:48] LABS: TOTAL PROTEIN 5.6 GM/DL (6.4-8.2)
[2017-11-09] VITALS (17 sets, daily range): BP systolic 100–118; BP diastolic 53–57; PULSE 66–84; RESP 22–25; TEMP 97.7–99.2; O2SAT 100
[2017-11-09] MEDS: SODIUM BICARBONATE 8.4% INJ 100 MEQ in DEXTROSE 5% IN WATE 1000ML INJ 1,000 ML IV SCH ×6 (00:48→18:24)
[2017-11-09 01:24] LABS: BACTERIA, URINE RARE /hpf; BILIRUBIN, URINE NEG (NEG); BLOOD, URINE MOD (NEG); GLUCOSE,URINE NEG (NEG); KETONE, URINE NEG (NEG); MUCUS URINE FEW /lpf (OCC); NITRITE,URINE NEG (NEG); SQUAMOUS EPITHELIAL CELL URINE 1 /hpf (0-5); URINE COLOR YELLOW (YELLW/STRAW); URINE LEUKOCYTE ESTERASE TRACE (NEG)
[2017-11-09 02:02] LABS: BASOPHIL # 0.1 TH/MM3 (0-0.2); BASOPHIL % 1.4 % (0.0-2.0); EOSINOPHIL # 0.2 TH/MM3 (0-0.4); EOSINOPHIL % 2.2 % (0.0-4.0); HEMATOCRIT 23.7 % (39.0-51.0); HEMOGLOBIN 7.9 GM/DL (13.0-17.0); LYMPH % 15.7 % (9.0-44.0); LYMPHOCYTE # 1.2 TH/MM3 (1.0-4.8); MEAN CELL VOLUME 75.7 FL (80.0-100.0); MEAN CORPUSCULAR HEMOGLOBIN 25.3 PG (27.0-34.0); MEAN CORPUSCULAR HGB CONC 33.5 % (32.0-36.0); MEAN PLATELET VOLUME 7.9 FL (7.0-11.0); MONO % 14.2 % (0.0-8.0); MONOCYTE # 1.1 TH/MM3 (0-0.9); NEUT % 66.5 % (16.0-70.0); PLATELET COUNT 77 TH/MM3 (150-450); RED BLOOD COUNT 3.13 MIL/MM3 (4.50-5.90); RED CELL DISTRIBUTION WIDTH 24.7 % (11.6-17.2); WHITE BLOOD COUNT 7.5 TH/MM3 (4.0-11.0)
[2017-11-09 02:10] LABS: INTERNATIONAL NORMALIZED RATIO 1.7 RATIO; PROTHROMBIN TIME - PATIENT 16.8 SEC (9.8-11.6)
[2017-11-09 02:31] LABS: ALBUMIN 2.6 GM/DL (3.4-5.0); BICARBONATE 21.6 MEQ/L (21.0-32.0); CALCIUM 7.2 MG/DL (8.5-10.1); CALCIUM-PROTEIN CORRECTED 7.9 MG/DL (8.5-10.1); CREATININE 4.22 MG/DL (0.60-1.30); TOTAL BILIRUBIN ADULT 1.8 MG/DL (0.2-1.0); TOTAL PROTEIN 5.7 GM/DL (6.4-8.2)
[2017-11-09 02:43] LABS: OVALOCYTES 2+ (NORMAL)
[2017-11-09] MEDS: CHLORHEXIDINE GLUCONATE 2 % 1 PACK (2 CLOTHS) TOP SCH (04:00)
[2017-11-09] MEDS: INSULIN NovoLIN REGULAR SUPPLEMENTAL SCALE SQ SCH ×6 (04:00→20:00)
[2017-11-09] MEDS: RESP: ALBUTEROL 2.5 MG/IPRATROPIUM 0.5 MG NEB (SCH) INH ×4 (04:35→20:16)
[2017-11-09] MEDS: PIPERACIL-TAZO 2.25 GM PREMIX 50 ML IV SCH ×3 (05:18→21:48)
[2017-11-09] MEDS: PANTOPRAZOLE INJ 80 MG in SODIUM CHLORIDE 0.9% INJ 100 ML IV SCH ×2 (05:18→16:06)
[2017-11-09] MEDS: PROPOFOL 1000 MG/100 ML IV PRN ×5 (05:18→22:30)
[2017-11-09] MEDS ORDERED: TERBUTALINE INJ 1 MG/ML AMP SQ PRN (05:45)
[2017-11-09] MEDS ORDERED: NOREPINEPHRINE INJ 4 MG in SODIUM CHLOR 0.9% 250 ML INJ 246 ML IV PRN (05:45)
[2017-11-09] MEDS: DOCUSATE SODIUM 50 MG/SENNA 8.6 MG TAB PO SCH ×2 (09:00→21:48)
[2017-11-09] MEDS: LACTULOSE SYRUP 20 GM/30 ML CUP PO SCH ×4 (09:13→21:48)
[2017-11-09] MEDS: SODIUM CHLORIDE 0.9% FLUSH 10 ML FLUSH IV FLUSH SCH ×2 (09:13→21:48)
[2017-11-09] MEDS: RIFAXIMIN 550 MG TAB PO SCH ×2 (09:13→21:48)
--- NOTE | 2017-11-09 13:42 | HHI.NPPN ---
Subjective History of Present Illness The patient is a 67 yo [place] male who presented to the ED 11/08 with complaints of weakness, SOB on exertion, abdominal pain, and hematemesis. He has a known hx of HCV, cirrhosis, and EtOH abuse. The patient was emergently intubated this evening. No family present at time of exam so no other information could be obtained. SCr at 5.30 with GFR 11 at admission. Last labs available were from January 2015 showing normal SCr of 1.01. No other admissions at this institution since January. Home medications listed as oxycodone, codeine, lactulose, and morphine. Interval History Patient maintains intubated and unresponsive. Patient being prepared for endoscopy at this time. Review of Systems General General Remarks Unobtainable secondary to patient's condition. Objective Data Data Vital Signs Date Time Temp Pulse Resp B/P (MAP) Pulse Ox O2 Delivery O2 Flow Rate FiO2 11/09/17 12:00 75 11/09/17 12:00 99.2 75 23 114/57 (76) 100 11/09/17 10:00 75 11/09/17 08:00 68 11/09/17 08:00 98.0 68 25 105/53 (70) 100 11/09/17 07:51 100 40 11/09/17 07:00 100 Mechanical Ventilator 50 11/09/17 06:00 66 11/09/17 04:35 100 50 11/09/17 04:00 66 11/09/17 02:00 68 11/09/17 00:52 100 60 11/09/17 00:00 97.7 70 22 100/57 (71) 100 11/09/17 00:00 70 11/08/17 22:00 72 11/08/17 20:00 99 Mechanical Ventilator 60 11/08/17 20:00 98.8 90 22 111/60 (77) 99 11/08/17 20:00 90 11/08/17 19:35 100 60 11/08/17 18:58 100 100 11/08/17 18:07 98.9 106 22 146/67 100 11/08/17 17:56 98 Nasal Cannula 3.00 11/08/17 17:31 98.8 98 17 130/65 100 11/08/17 17:08 98.9 99 16 149/68 99 11/08/17 17:02 98.9 99 21 149/68 93 11/08/17 16:52 98.9 97 27 128/67 99 11/08/17 16:00 97 11/08/17 16:00 98.9 97 27 128/67 (87) 99 11/08/17 15:07 91 21 139/63 (88) 98 11/08/17 14:15 93 22 119/59 (79) 96 Nasal Cannula 2.00 11/08/17 13:55 96 21 108/62 (77) 96 Nasal Cannula 2.00 -: 11/09/17 0149 11/09/17 0149 Microbiology 11/08/17 Aerobic Blood Culture - Preliminary, Resulted NO GROWTH IN 1 DAY 11/08/17 Anaerobic Blood Culture - Preliminary, Resulted NO GROWTH IN 1 DAY 11/08/17 Aerobic Blood Culture - Preliminary, Resulted NO GROWTH IN 1 DAY 11/08/17 Anaerobic Blood Culture - Preliminary, Resulted NO GROWTH IN 1 DAY 11/09/17 Urine Culture, Received Pending Physical Exam General Appearance: Obese Eyes Eye Exam: Sclera White Neck Neck Exam: Trachea Midline Pulmonary Resp Exam: Clear Bilaterally, Decreased Bases Cardiology CV Exam: Regular, Normal Sinus Rhythm Gastrointestinal/Abdomen GI Exam: Soft, Non-Tender, Distended Integumentary Skin Exam: Clear, Warm, Normal Turgor Extremeties Extremities Exam: Trace Edema Assessment/Plan Problem List: (1) Acute renal failure (ARF) ICD Codes: N17.9 - Acute kidney failure, unspecified Plan: Renal failure likely multifactorial: hemodynamic related to apparent GIB , potential sepsis, possibility of hepatorenal syndrome given hx of cirrhosis, potential of GN given hx of HCV. UDS pending so uncertain if illicit drug use contributing. Patient's renal indices have improved slightly since yesterday. Continue hydration as ordered. Given comorbidities patient's prognosis is still guarded and he remains critically ill. Continue on IVF with bicarbonate to improve acid/base status. Medications should be adjusted for the patient's renal decline. Avoid nephrotoxins such as iodinated contrast dyes and NSAIDs. Avoid gadolinium. (2) Anemia ICD Codes: D64.9 - Anemia, unspecified Plan: Potential EGD in the AM. Received blood today. (3) Acidosis, metabolic ICD Codes: E87.2 - Acidosis Plan: Continue on bicarbonate IV (4) Cirrhosis ICD Codes: K74.60 - Cirrhosis Status: Chronic (5) Hepatitis C ICD Codes: B19.20 - Hepatitis C Status: Chronic Plan: As above, check UPCR, cryoglobulins Oziel Saul MD Nov 09, 2017 13:42
--- NOTE | 2017-11-09 13:58 | GIPROC ---
[facility] [address] [facility]. [facility], [address] EGD PROCEDURE REPORT EXAM DATE: 11/09/2017 PATIENT NAME: Oscar Musa MR #: [id number] BIRTHDATE: 1950 ATTENDING: Sumit Anderson MD ORDER #: [id number] LARGE ANIMAL HUSBANDRY TECHNICIAN: Mary Ann Hogan and Chucky Bhakta STATUS: inpatient INDICATIONS: The patient is a 67 yr old male here for an EGD due to melena PROCEDURE PERFORMED: EGD w/ control of bleeding MEDICATIONS: None and Per Anesthesia. TOPICAL ANESTHETIC: none CONSENT: The patient understands the risks and benefits of the procedure and understands that these risks include, but are not limited to: sedation, allergic reaction, infection, perforation and/or bleeding. Alternative means of evaluation and treatment include, among others: physical exam, x-rays, and/or surgical intervention. The patient elects to proceed with this endoscopic procedure. medical equipment was checked for proper function. Hand hygiene and appropriate measures for infection prevention was taken. After the risks, benefits and alternatives of the procedure were thoroughly explained, Informed consent was verified, confirmed and timeout was successfully executed by the treatment team. The patient was anesthetized with topical anesthesia and the Pentax [id number] endoscope was introduced through the mouth and advanced to the second portion of the duodenum. Retroflexion was performed and was normal The gastroscope was then slowly withdrawn and removed. ESOPHAGUS: The esophagus was otherwise normal. STOMACH: The mucosa of the stomach appeared normal. DUODENUM: A large non-bleeding, round and deep ulcer with a red spot and a pigmented spot was found in the duodenal bulb. Submucosal injection of 5ml of epinephrine 1:10,000 was performed around the bleeding site with complete hemostasis achieved. ADVERSE EVENTS: There were no complications. IMPRESSIONS: 1. The esophagus was otherwise normal 2. The mucosa of the stomach appeared normal 3. Large ulcer was found in the duodenal bulb; Submucosal injection of 5ml of epinephrine 1:10,000 was performed around the bleeding site 4. Retroflexion was performed and was normal RECOMMENDATIONS: 1. Continue PPI 2. DC Octreotide infusion PATIENT CONDITION: stable DISPOSITION: Observation REPEAT EXAM: NONE Sumit Anderson MD eSigned: Sumit Anderson MD 11/09/2017 1:58 PM cc: PATIENT NAME: Oscar Musa MR#: [id number]
[2017-11-09] MEDS ORDERED: EPINEPHrine HCL (1:1000) 1 MG/ML VIAL OTHER ONE (14:11)
--- NOTE | 2017-11-09 18:45 | EKG ---
Date Performed: 11/08/2017 Time Performed: 11:37:00 PTAGE: 67 years EKG: Sinus rhythm WITH OCCASIONAL VENTRICULAR PREMATURE COMPLEXES BORDERLINE ECG NO PREVIOUS TRACING DOCTOR: Karsten Castrejon Interpretating Date/Time 11/09/2017 18:42:40
--- NOTE | 2017-11-09 21:03 | HHI.CCPN ---
Subjective Remarks/Hospital Course 11/09: I had a long discussion with the patient's hospice doctor today. Apparently the patient has been in hospice for some time and is followed on a fairly regular basis. The hospice doctor states today to me that he did not want his acute hepatitis C treated and has been living at home with comfort oriented goals for at least the last year. The hospice doctor told me that she would get in touch with the patient's to sisters and make sure everyone is on the same page, but based on her conversation, it does not sound that the patient would want aggressive measures. In addition GI scope the patient and found a bleeding duodenal ulcer. This was intervened upon, however the patient still has coagulopathy secondary to liver disease, a high meld, and multiorgan failure including respiratory failure requiring mechanical ventilation. Patient remains critically ill with minimal improvements. Objective Vital Signs Date Time Temp Pulse Resp B/P (MAP) Pulse Ox O2 Delivery O2 Flow Rate FiO2 11/09/17 20:09 100 40 11/09/17 18:00 71 11/09/17 16:00 98.8 22 117/57 (77) 11/09/17 07:00 Mechanical Ventilator 11/08/17 17:56 3.00 Intake and Output 11/09/17 11/09/17 11/09/17 07:59 15:59 23:59 Intake Total 400 ml 545 ml Output Total 1000 ml 1150 ml Balance -1000 ml 400 ml -605 ml Result Diagram: 11/09/17 0149 11/09/17 0149 Other Results Laboratory Tests Test 11/09/17 19:21 Blood Gas Puncture Site RT RADIAL Blood Gas Patient Temperature 98.6 Blood Gas HCO3 15 mmol/L (22-26) Blood Gas Base Excess -10.4 mmol/L (-2-2) Blood Gas Oxygen Saturation 97 % (90-100) Arterial Blood pH 7.25 (7.380-7.420) Arterial Blood Partial Pressure CO2 36 mmHg (38-42) Arterial Blood Partial Pressure O2 427 mmHg (61-120) Arterial Blood Oxygen Content 10.5 Vol % (12.0-20.0) Arterial Blood Carboxyhemoglobin 1.7 % (0-4) Arterial Blood Methemoglobin 1.4 % (0-2) Blood Gas Hemoglobin 6.8 G/DL (12.0-16.0) Oxygen Delivery Device VENT Blood Gas Ventilator Setting SEE COMMENTS Blood Gas Inspired Oxygen 100 % Objective Remarks GENERAL: Middle-aged male, lying in bed, intubated, sedated, critically ill HEENT: Normocephalic. Atraumatic. Pupils equal, round, reactive, conjugate. Mucous membranes are moist NECK: Trachea is midline. There is no JVD. CHEST: Equal chest rise. Mechanically ventilated. CARDIOVASCULAR: Normal rate, regular rhythm. Sinus by telemetry ABDOMEN: Soft, nontender, mildly distended. Positive fluid wave. No guarding. MUSCULOSKELETAL: Pulses 2+. No peripheral edema. NEUROLOGICAL: RASS -3. Withdraws to pain. Does not follow commands. A/P Assessment and Plan Assessment: 67-year-old male with acute upper GI bleed and respiratory failure requiring mechanical ventilation. Remains critically ill. Remains with severe coagulopathy secondary to end-stage liver disease, acute shock liver, respiratory failure, anemia secondary to acute blood loss, end-stage liver disease. After discussions with the patient's own hospice doctor, likely this is not incongruence with the patient's stated wishes. We will consult palliative care, and may need to place the patient back in hospice. For now her goals are aggressive until we can discern what his actual more clear goals will be. He remains critically ill. Active problems: Hepatic encephalopathy Acute hypoxic and hypercarbic respiratory failure Active upper GI bleed End-stage liver disease Coagulopathy secondary to acute liver disease Acute protein calorie malnutrition: Severe Thrombocytopenia secondary to end-stage liver disease and splenic sequestration Shock liver Anemia secondary to acute blood loss Plan: Vent bundle Head of bed elevated Nebs Wean FiO2 for gross PO2 greater than 90% Propofol for sedation Lactulose for hyperammonemia N.p.o. for now GI following Protonix drip Continue the bicarb for severe acidosis Consult palliative care Ongoing goals of care discussion Daily CMP, CBC, coags. This patient remains critically ill with one or more organ systems which are or may become a threat to life. I have spent in excess of 31 minutes discontinuously in the care and management of this patient. This time is exclusive of procedures, and includes, but is not limited to, evaluation of the patient, review of the medical record, discussions with family, consultants, nursing staff, or respiratory therapy, and documentation in the medical record. Norbert Theodore MD Nov 09, 2017 21:03
[2017-11-10] VITALS (18 sets, daily range): BP systolic 105–128; BP diastolic 52–63; PULSE 58–88; RESP 22; TEMP 98.2–99.5; O2SAT 98–100
[2017-11-10] MEDS: SODIUM BICARBONATE 8.4% INJ 100 MEQ in DEXTROSE 5% IN WATE 1000ML INJ 1,000 ML IV SCH ×8 (00:02→20:48)
[2017-11-10] MEDS: PANTOPRAZOLE INJ 80 MG in SODIUM CHLORIDE 0.9% INJ 100 ML IV SCH ×3 (02:00→20:42)
[2017-11-10] MEDS: PROPOFOL 1000 MG/100 ML IV PRN ×4 (03:34→20:29)
[2017-11-10] MEDS: CHLORHEXIDINE GLUCONATE 2 % 1 PACK (2 CLOTHS) TOP SCH (04:00)
[2017-11-10] MEDS: INSULIN NovoLIN REGULAR SUPPLEMENTAL SCALE SQ SCH ×6 (04:00→20:00)
[2017-11-10] MEDS: RESP: ALBUTEROL 2.5 MG/IPRATROPIUM 0.5 MG NEB (SCH) INH ×4 (04:28→20:10)
[2017-11-10] MEDS: PIPERACIL-TAZO 2.25 GM PREMIX 50 ML IV SCH ×3 (05:58→21:42)
[2017-11-10] MEDS: SODIUM CHLORIDE 0.9% FLUSH 10 ML FLUSH IV FLUSH SCH ×2 (08:44→20:46)
[2017-11-10] MEDS: LACTULOSE SYRUP 20 GM/30 ML CUP PO SCH ×4 (08:44→21:00)
[2017-11-10] MEDS: DOCUSATE SODIUM 50 MG/SENNA 8.6 MG TAB PO SCH ×2 (08:44→20:47)
[2017-11-10] MEDS: RIFAXIMIN 550 MG TAB PO SCH ×2 (09:00→20:28)
--- NOTE | 2017-11-10 10:34 | HHI.CCPN ---
Subjective Remarks/Hospital Course 11/09: I had a long discussion with the patient's hospice doctor today. Apparently the patient has been in hospice for some time and is followed on a fairly regular basis. The hospice doctor states today to me that he did not want his acute hepatitis C treated and has been living at home with comfort oriented goals for at least the last year. The hospice doctor told me that she would get in touch with the patient's to sisters and make sure everyone is on the same page, but based on her conversation, it does not sound that the patient would want aggressive measures. In addition GI scope the patient and found a bleeding duodenal ulcer. This was intervened upon, however the patient still has coagulopathy secondary to liver disease, a high meld, and multiorgan failure including respiratory failure requiring mechanical ventilation. Patient remains critically ill with minimal improvements. 11/10: still no meaningful improvements. palliative to see today. will attempt to get back in touch with the patient's hospice physician. hospice is most appropriate right now. Objective Vital Signs Date Time Temp Pulse Resp B/P (MAP) Pulse Ox O2 Delivery O2 Flow Rate FiO2 11/10/17 08:21 98 40 11/10/17 08:00 99.4 66 22 113/56 (75) 11/10/17 07:00 Mechanical Ventilator 11/08/17 17:56 3.00 Intake and Output 11/10/17 11/10/17 11/11/17 08:00 16:00 00:00 Intake Total 255 ml Output Total 1300 ml Balance -1045 ml Result Diagram: 11/09/17 0149 11/09/17 0149 Other Results Laboratory Tests Test 11/09/17 19:21 Blood Gas Puncture Site RT RADIAL Blood Gas Patient Temperature 98.6 Blood Gas HCO3 15 mmol/L (22-26) Blood Gas Base Excess -10.4 mmol/L (-2-2) Blood Gas Oxygen Saturation 97 % (90-100) Arterial Blood pH 7.25 (7.380-7.420) Arterial Blood Partial Pressure CO2 36 mmHg (38-42) Arterial Blood Partial Pressure O2 427 mmHg (61-120) Arterial Blood Oxygen Content 10.5 Vol % (12.0-20.0) Arterial Blood Carboxyhemoglobin 1.7 % (0-4) Arterial Blood Methemoglobin 1.4 % (0-2) Blood Gas Hemoglobin 6.8 G/DL (12.0-16.0) Oxygen Delivery Device VENT Blood Gas Ventilator Setting SEE COMMENTS Blood Gas Inspired Oxygen 100 % Objective Remarks GENERAL: Middle-aged male, lying in bed, intubated, sedated, critically ill HEENT: Normocephalic. Atraumatic. Pupils equal, round, reactive, conjugate. Mucous membranes are moist NECK: Trachea is midline. There is no JVD. CHEST: Equal chest rise. Mechanically ventilated. CARDIOVASCULAR: Normal rate, regular rhythm. Sinus by telemetry ABDOMEN: Soft, nontender, mildly distended. Positive fluid wave. No guarding. MUSCULOSKELETAL: Pulses 2+. No peripheral edema. NEUROLOGICAL: RASS -3. Withdraws to pain. Does not follow commands. A/P Assessment and Plan Assessment: 67-year-old male with acute upper GI bleed and respiratory failure requiring mechanical ventilation. Remains critically ill. Remains with severe coagulopathy secondary to end-stage liver disease, acute shock liver, respiratory failure, anemia secondary to acute blood loss, end-stage liver disease. After discussions with the patient's own hospice doctor, likely this is not incongruence with the patient's stated wishes. We will consult palliative care, and may need to place the patient back in hospice. For now her goals are aggressive until we can discern what his actual more clear goals will be. He remains critically ill. Active problems: Hepatic encephalopathy Acute hypoxic and hypercarbic respiratory failure Active upper GI bleed End-stage liver disease Coagulopathy secondary to acute liver disease Acute protein calorie malnutrition: Severe Thrombocytopenia secondary to end-stage liver disease and splenic sequestration Shock liver Anemia secondary to acute blood loss Plan: Vent bundle Head of bed elevated Nebs Wean FiO2 for gross PO2 greater than 90% Propofol for sedation Lactulose for hyperammonemia N.p.o. for now GI following Protonix drip Continue the bicarb for severe acidosis Consult palliative care Ongoing goals of care discussion Daily CMP, CBC, coags. Norbert Theodore MD Nov 10, 2017 10:33
--- NOTE | 2017-11-10 12:10 | PD.CONS ---
Consult Service Palliative Care Consult Requested By Dr. Theodore Primary Care Physician No Primary Care Physician Reason for Consultation a. To assist with evaluation and management of symptoms including: Pain. b. To assist medical decision maker(s) with: better understanding of current medical conditions; weighing benefits/burdens of medical treatment options; making medical treatment decisions. HPI History of Present Illness 67-year-old with a past medical history of cirrhosis secondary to hepatitis C and alcohol abuse. Patient has been on hospice patient. Apparently in 2014 patient contemplated on sign-on with [facility], but ultimately decided to enroll with the [facility]. Patient presented with blood in the stool, hematemesis and pain in the epigastric region. In the ER: * 98.1, pulse is 100, respirations 25, blood pressure is 125/57, pulse ox is 98% . * WC is 20.7, RBCs 2.90, hemoglobin is 5.9, hematocrit is 20.0, platelet is 283. * Sodium is 135, potassium 3.6, chloride is 101, bicarbonate is 11.2, BUN is 82 , creatinine is 5.3 * AST is 48, ALT is 45, ammonia is 262, troponin I 0.12 * Albumin is 2.8 * PT 16.7, INR is 1.7, PT is 12.4. * Head CT shows no evidence of acute intracranial pathology no masses are identified * ET tube in good position. * Abdomen CT shows cirrhosis, splenomegaly, cholelithiasis. She was quickly transferred to ICU. GI, nephrology was consulted. Patient seen and evaluated and treated by emergency room orderly. 11/09/2017 EGD was performed that shows a large ulcer was found in the duodenal bulb. Submucosal injection of 5 mL of epinephrine was performed around bleeding site. Retroflexion was performed. Patient continue on PPI. Nephrology following C patient's renal indices have improved slightly. Patient continue to be hydrated. 11/10/2017- Pt remains critically ill. Cr improved slightly but remains coagulopathic 2nd to liver disease, respiratory failure. Palliative care consulted to review goals of care. Pt currently intubated unresponsive. Spent time with pt's sister Yaneth and review overall condition, discussed code status, peg and trach. Function/Cognitive Trajectory Was on hospice 2014 with [facility], stay for a year but they graduated and was with home health. Past month more weak, more uncomfortable, fallen. Review of Systems ROS Limitations: Clinical Condition Constitutional: COMPLAINS OF: Fatigue Gastrointestinal: COMPLAINS OF: Black stools, Bloody stools, Nausea Past Family Social History Coded Allergies: acetaminophen (Unverified Allergy, Intermediate, 11/08/17) upset stomach, rash, diarrhea Past Medical History cirrhosis hep C GI bleed Encephalopathy Past Surgical History Appendectomy, paracentesis, endoscopy Reported Medications Codeine, morphine ER, oxycodone, lactulose Current Medications Medications (Trade) Dose Ordered Sig/Klaus Route Start Time Stop Time Status Last Admin Pantoprazole Sodium 80 mg/ Sodium Chloride 100 ml @ 10 mls/hr Q10H IV 11/08/17 10:44 11/10/17 02:00 (Duoneb Neb) 1 ampule Q6HR NEB INH 11/08/17 16:00 11/10/17 08:20 Miscellaneous Information 1 Q361D XX 11/08/17 13:15 (Chlorhexidine 2% Cloth) 3 pack Taper DAILY@04 TOP 11/09/17 04:00 11/05/18 03:59 (Chlorhexidine 2% Cloth) 3 pack UNSCH PRN TOP 11/08/17 13:15 (Kinza-Colace) 1 tab BID PO 11/08/17 21:00 11/09/17 21:48 (Milk Of Magnesia Liq) 30 ml Q12H PRN PO 11/08/17 13:15 (Senokot) 17.2 mg Q12H PRN PO 11/08/17 13:15 (Dulcolax Supp) 10 mg DAILY PRN RECTAL 11/08/17 13:15 (Lactulose Liq) 30 ml DAILY PRN PO 11/08/17 13:15 Piperacillin Sod/ Tazobactam Sod 50 ml @ 100 mls/hr Q8H IV 11/08/17 22:00 11/10/17 05:58 Sodium Bicarbonate 100 meq/Dextrose 1,100 ml @ 125 mls/hr Q8H48M IV 11/08/17 16:00 11/10/17 08:00 (D50w (Vial) Inj) 50 ml UNSCH PRN IV PUSH 11/08/17 14:00 (Glucagon Inj) 1 mg UNSCH PRN OTHER 11/08/17 14:00 (NovoLIN R SUPPLEMENTAL SCALE) 1 Q4H SQ 11/08/17 16:00 11/09/17 17:11 (Lactulose Liq) 30 ml QID PO 11/08/17 18:00 11/10/17 08:44 (Xifaxan) 550 mg BID PO 11/08/17 15:30 11/09/17 21:48 (NS Flush) 2 ml UNSCH PRN IV FLUSH 11/08/17 14:15 (NS Flush) 2 ml BID IV FLUSH 11/08/17 14:15 11/10/17 08:44 Dexmedetomidine HCl 200 mcg/ Sodium Chloride 52 ml @ 6.34 mls/hr TITRATE PRN IV 11/08/17 18:30 (Ativan Inj) 2 mg Q3H PRN IV PUSH 11/08/17 18:30 Propofol 100 ml @ 3.66 mls/hr TITRATE PRN IV 11/08/17 19:15 11/10/17 09:55 Norepinephrine Bitartrate 4 mg/ Sodium Chloride 250 ml @ 7.5 mls/hr TITRATE PRN IV 11/09/17 05:45 (Brethine Inj) 1 mg UNSCH PRN SQ 11/09/17 05:45 Family History unable to elicit Substance Use Tobacco: Yes Alcohol: Yes but quit drinking since 2014 when pt was in hospice Prescription med abuse: In the past. Illicits: Yes Psychosocial History from [place], moved to [place] in the 70s. Was in the [employer] business. Spiritual/Cultural Factors None listed Physical Exam Vital Signs Date Time Temp Pulse Resp B/P (MAP) Pulse Ox O2 Delivery O2 Flow Rate FiO2 11/10/17 08:21 98 40 11/10/17 08:00 99.4 66 22 113/56 (75) 98 11/10/17 08:00 66 11/10/17 07:00 97 Mechanical Ventilator 40 11/10/17 06:00 88 11/10/17 04:30 98 40 11/10/17 04:00 66 11/10/17 04:00 98.6 66 22 128/63 (84) 99 11/10/17 02:00 64 11/10/17 00:10 100 40 11/10/17 00:00 98.7 76 22 110/53 (72) 99 11/10/17 00:00 76 11/09/17 22:00 70 11/09/17 20:09 100 40 11/09/17 20:00 100 Mechanical Ventilator 50 11/09/17 20:00 68 11/09/17 20:00 98.6 68 22 118/56 (76) 100 11/09/17 18:00 71 11/09/17 16:00 73 11/09/17 16:00 98.8 73 22 117/57 (77) 100 11/09/17 15:47 100 40 11/09/17 14:00 84 11/09/17 12:00 75 11/09/17 12:00 99.2 75 23 114/57 (76) 100 Exam CONSTITUTIONAL/GENERAL: This frail gentlemen, intubated and sedated TUBES/LINES/DRAINS: ET tube, grant. Rectal tube , bloody. SKIN: No jaundice, but pallor. HEAD: Atraumatic. Normocephalic. EYES: Pupils equal and round and reactive. Extraocular motions intact. No scleral icterus. No injection or drainage. Fundi not examined. ENT: . Nose without bleeding or purulent drainage. Throat ET tube NECK: Trachea midline. Supple, nontender. No palpable thyroid enlargement or nodularity. CARDIOVASCULAR: Regular rate and rhythm without murmurs, gallops, or rubs. No JVD. Peripheral pulses symmetric. RESPIRATORY/CHEST: Symmetric, unlabored respirations. Clear to auscultation. Breath sounds equal bilaterally. No wheezes, rales, or rhonchi. GASTROINTESTINAL: Abdomen soft, distended Hyeractive BS GENITOURINARY: Without palpable bladder distension. Grant catheter in place. MUSCULOSKELETAL: Extremities edemetous LYMPHATICS: No palpable cervical or supraclavicular adenopathy. NEUROLOGICAL: Unresponsive . PSYCHIATRIC: could not evaluate given level of conciousness. Diagnostic Tests Laboratory Laboratory Tests Test 11/08/17 10:45 11/08/17 11:40 11/08/17 13:35 11/08/17 15:13 White Blood Count 20.7 TH/MM3 (4.0-11.0) Red Blood Count 2.90 MIL/MM3 (4.50-5.90) Hemoglobin 5.9 GM/DL (13.0-17.0) Hematocrit 20.0 % (39.0-51.0) Mean Corpuscular Volume 69.0 FL (80.0-100.0) Mean Corpuscular Hemoglobin 20.3 PG (27.0-34.0) Mean Corpuscular Hemoglobin Concent 29.5 % (32.0-36.0) Red Cell Distribution Width 20.8 % (11.6-17.2) Platelet Count 283 TH/MM3 (150-450) Mean Platelet Volume 8.5 FL (7.0-11.0) Neutrophils (%) (Auto) 88.1 % (16.0-70.0) Lymphocytes (%) (Auto) 5.6 % (9.0-44.0) Monocytes (%) (Auto) 4.6 % (0.0-8.0) Eosinophils (%) (Auto) 1.0 % (0.0-4.0) Basophils (%) (Auto) 0.7 % (0.0-2.0) Neutrophils # (Auto) 18.3 TH/MM3 (1.8-7.7) Lymphocytes # (Auto) 1.2 TH/MM3 (1.0-4.8) Monocytes # (Auto) 0.9 TH/MM3 (0-0.9) Eosinophils # (Auto) 0.2 TH/MM3 (0-0.4) Basophils # (Auto) 0.2 TH/MM3 (0-0.2) CBC Comment DIFF FINAL Differential Comment Prothrombin Time 16.7 SEC (9.8-11.6) Prothromb Time International Ratio 1.7 RATIO Activated Partial Thromboplast Time 21.4 SEC (24.3-30.1) Blood Urea Nitrogen 82 MG/DL (7-18) Creatinine 5.30 MG/DL (0.60-1.30) Random Glucose 127 MG/DL (74-106) Total Protein 6.3 GM/DL (6.4-8.2) Albumin 2.8 GM/DL (3.4-5.0) Calcium Level 7.4 MG/DL (8.5-10.1) Alkaline Phosphatase 75 U/L (45-117) Aspartate Amino Transf (AST/SGOT) 48 U/L (15-37) Alanine Aminotransferase (ALT/SGPT) 45 U/L (12-78) Total Bilirubin 0.7 MG/DL (0.2-1.0) Sodium Level 135 MEQ/L (136-145) Potassium Level 3.8 MEQ/L (3.5-5.1) Chloride Level 101 MEQ/L (98-107) Carbon Dioxide Level 11.2 MEQ/L (21.0-32.0) Anion Gap 23 MEQ/L (5-15) Estimat Glomerular Filtration Rate 11 ML/MIN (>89) Protein Corrected Calcium 7.8 MG/DL (8.5-10.1) Troponin I 0.12 NG/ML (0.02-0.05) Lipase 174 U/L (73-393) Ammonia 262 MCMOL/L (11-32) Blood Gas Puncture Site LT RADIAL Blood Gas Patient Temperature 98.6 Blood Gas HCO3 13 mmol/L (22-26) Blood Gas Base Excess -12.1 mmol/L (-2-2) Blood Gas Oxygen Saturation 92 % (90-100) Arterial Blood pH 7.30 (7.380-7.420) Arterial Blood Partial Pressure CO2 27 mmHg (38-42) Arterial Blood Partial Pressure O2 81 mmHG (61-120) Arterial Blood Oxygen Content 7.4 Vol % (12.0-20.0) Arterial Blood Carboxyhemoglobin 2.1 % (0-4) Arterial Blood Methemoglobin 0.7 % (0-2) Blood Gas Hemoglobin 5.6 G/DL (12.0-16.0) Oxygen Delivery Device ROOM AIR Blood Gas Inspired Oxygen 21 % Lactic Acid Level 6.3 mmol/L (0.4-2.0) Test 11/08/17 20:37 11/09/17 00:50 11/09/17 01:49 11/09/17 19:21 Prothrombin Time 17.4 SEC (9.8-11.6) 16.8 SEC (9.8-11.6) Prothromb Time International Ratio 1.7 RATIO 1.7 RATIO Blood Urea Nitrogen 76 MG/DL (7-18) 76 MG/DL (7-18) Creatinine 4.44 MG/DL (0.60-1.30) 4.22 MG/DL (0.60-1.30) Random Glucose 131 MG/DL (74-106) 116 MG/DL (74-106) Total Protein 5.6 GM/DL (6.4-8.2) 5.7 GM/DL (6.4-8.2) Calcium Level 7.2 MG/DL (8.5-10.1) 7.2 MG/DL (8.5-10.1) Sodium Level 141 MEQ/L (136-145) 141 MEQ/L (136-145) Potassium Level 3.8 MEQ/L (3.5-5.1) 3.7 MEQ/L (3.5-5.1) Chloride Level 107 MEQ/L (98-107) 107 MEQ/L (98-107) Carbon Dioxide Level 17.2 MEQ/L (21.0-32.0) 21.6 MEQ/L (21.0-32.0) Anion Gap 17 MEQ/L (5-15) 12 MEQ/L (5-15) Estimat Glomerular Filtration Rate 13 ML/MIN (>89) 14 ML/MIN (>89) Lactic Acid Level 4.5 mmol/L (0.4-2.0) Protein Corrected Calcium 8.0 MG/DL (8.5-10.1) 7.9 MG/DL (8.5-10.1) Urine Color YELLOW (YELLW/STRAW) Urine Turbidity CLEAR (CLEAR) Urine pH 5.0 (5.0-8.5) Urine Specific Gypsum 1.020 (1.002-1.035) Urine Protein TRACE mg/dL (NEG-TRACE) Urine Glucose (UA) NEG mg/dL (NEG) Urine Ketones NEG mg/dL (NEG) Urine Occult Blood MOD (NEG) Urine Nitrite NEG (NEG) Urine Bilirubin NEG (NEG) Urine Urobilinogen LESS THAN 2.0 MG/DL (LESS Urine Leukocyte Esterase TRACE (NEG) Urine RBC 25 /hpf (0-3) Urine WBC 6 /hpf (0-5) Urine Squamous Epithelial Cells 1 /hpf (0-5) Urine Bacteria RARE /hpf (NONE) Urine Mucus FEW /lpf (OCC) Urine Yeast (Budding) RARE (NONE) Microscopic Urinalysis Comment CATH-CULTURE IND Urine Random Creatinine 119 MG/DL (27-300) Urine Random Total Protein 49 MG/DL (0-11.8) Urine Random Sodium 30 MEQ/L Urine Protein/Creatinine Ratio 0.41 (0.00-0.14) Urine Opiates Screen POS (NEG) Urine Barbiturates Screen NEG (NEG) Urine Amphetamines Screen NEG (NEG) Urine Benzodiazepines Screen POS (NEG) Urine Cocaine Screen NEG (NEG) Urine Cannabinoids Screen NEG (NEG) White Blood Count 7.5 TH/MM3 (4.0-11.0) Red Blood Count 3.13 MIL/MM3 (4.50-5.90) Hemoglobin 7.9 GM/DL (13.0-17.0) Hematocrit 23.7 % (39.0-51.0) Mean Corpuscular Volume 75.7 FL (80.0-100.0) Mean Corpuscular Hemoglobin 25.3 PG (27.0-34.0) Mean Corpuscular Hemoglobin Concent 33.5 % (32.0-36.0) Red Cell Distribution Width 24.7 % (11.6-17.2) Platelet Count 77 TH/MM3 (150-450) Mean Platelet Volume 7.9 FL (7.0-11.0) Neutrophils (%) (Auto) 66.5 % (16.0-70.0) Lymphocytes (%) (Auto) 15.7 % (9.0-44.0) Monocytes (%) (Auto) 14.2 % (0.0-8.0) Eosinophils (%) (Auto) 2.2 % (0.0-4.0) Basophils (%) (Auto) 1.4 % (0.0-2.0) Neutrophils # (Auto) 5.0 TH/MM3 (1.8-7.7) Lymphocytes # (Auto) 1.2 TH/MM3 (1.0-4.8) Monocytes # (Auto) 1.1 TH/MM3 (0-0.9) Eosinophils # (Auto) 0.2 TH/MM3 (0-0.4) Basophils # (Auto) 0.1 TH/MM3 (0-0.2) CBC Comment AUTO DIFF Differential Comment AUTO DIFF CONFIRMED Platelet Estimate LOW (NORMAL) Platelet Morphology Comment NORMAL (NORMAL) Ovalocytes 2+ (NORMAL) Albumin 2.6 GM/DL (3.4-5.0) Alkaline Phosphatase 63 U/L (45-117) Aspartate Amino Transf (AST/SGOT) 673 U/L (15-37) Alanine Aminotransferase (ALT/SGPT) 319 U/L (12-78) Total Bilirubin 1.8 MG/DL (0.2-1.0) Ammonia 35 MCMOL/L (11-32) Blood Gas Puncture Site RT RADIAL Blood Gas Patient Temperature 98.6 Blood Gas HCO3 15 mmol/L (22-26) Blood Gas Base Excess -10.4 mmol/L (-2-2) Blood Gas Oxygen Saturation 97 % (90-100) Arterial Blood pH 7.25 (7.380-7.420) Arterial Blood Partial Pressure CO2 36 mmHg (38-42) Arterial Blood Partial Pressure O2 427 mmHg (61-120) Arterial Blood Oxygen Content 10.5 Vol % (12.0-20.0) Arterial Blood Carboxyhemoglobin 1.7 % (0-4) Arterial Blood Methemoglobin 1.4 % (0-2) Blood Gas Hemoglobin 6.8 G/DL (12.0-16.0) Oxygen Delivery Device VENT Blood Gas Ventilator Setting SEE COMMENTS Blood Gas Inspired Oxygen 100 % Result Diagram: 11/09/17 0149 11/09/17 0149 Microbiology Microbiology Date/Time Source Procedure Growth Status 11/08/17 20:37 Blood Peripheral Aerobic Blood Culture - Preliminary NO GROWTH IN 2 DAYS Resulted 11/08/17 20:37 Blood Peripheral Anaerobic Blood Culture - Preliminary NO GROWTH IN 2 DAYS Resulted 11/08/17 20:30 Blood Peripheral Aerobic Blood Culture - Preliminary NO GROWTH IN 2 DAYS Resulted 11/08/17 20:30 Blood Peripheral Anaerobic Blood Culture - Preliminary NO GROWTH IN 2 DAYS Resulted 11/09/17 00:50 Urine Catheterized Urine Urine Culture Pending Received Patient/Family Conference Present at Family Conference: Yaneth benjamin as decline to participate in medical decisions. Yaneth will be the proxy. Family Conference Time (mins): 44 Family Conference Location: Bedside, Consult Room Issues Discussed: * Palliative care role, purpose, approach * Additional medical, psychosocial, and spiritual history * Patients general health, functional status, and cognitive changes in the months leading up to the current hospitalization * Patient/family understanding of the current medical problems * Patient/family understanding of prognosis * Patients goals of care as best understood from advance directives and/or conversations and/or values * Current medical treatment options and benefits/burdens of those options * Likely scenarios comparing ongoing aggressive care with a transition to comfort measures only * Questions answered to the best of my ability * Palliative care contact information provided Assessment and Plan Disease Oriented Problem List: (1) Hepatitis C (2) Cirrhosis (3) Ascites (4) Acidosis, metabolic (5) Acute renal failure (ARF) Symptom Scale: Pertinent Non-Medical Issues Psychosocial: Spiritual: Legal: Ethical issues impacting care: Important Contacts Lilliana Musa . Prognosis Pt has ES cirrohsis. Prognosis is poor. Code Status: No Code Plan == [facility]- no capacity to make medical decisions. == health care decision maker: pt is not . parents past away, no children. Pt has 2 sisters. Renea Musa and Lilliana Musa. Renea Musa has declined to participate to make medical decisions. Yaneth Musa is health care proxy. == dyspnea- manage on the vent. no new med rec. == code: DNR/DNI. == goals of care: No peg or trach. If pt is not able to get off the vent, or if medical team feels pt is unlikely to get off the vent, Yaneth Musa is amenable to transition to comfort measures with hospice. == palliative care will continue to follow. Time Spent Total Floor Time (mins): 70 Thank you for the opportunity to participate in the care of Mr. Musa. Attestation To help prompt me to consider important information that might be impacting today's encounter and assessment, information from prior notes written by myself or my colleagues may have been "brought forward" into today's note. My signature on this note, however, is an attestation that I personally performed the exam, history, and/or decision-making noted today, and, unless otherwise indicated, the interactions with patient, family, and staff as well as the review of records all occurred today. I also attest that the listed assessment and stated plan reflect my best clinical judgment today based on the combination of historical information, prior notes, and today's exam/ interactions. When time spent is documented, it refers only to time spent today by the signer, or if indicated, combined time spent today by collaborating physician/nurse practitioner. Gio Appiah MD Nov 10, 2017 12:10
--- NOTE | 2017-11-10 15:32 | HHI.NPPN ---
Subjective History of Present Illness The patient is a 67 yo [place] male who presented to the ED 11/08 with complaints of weakness, SOB on exertion, abdominal pain, and hematemesis. He has a known hx of HCV, cirrhosis, and EtOH abuse. The patient was emergently intubated this evening. No family present at time of exam so no other information could be obtained. SCr at 5.30 with GFR 11 at admission. Last labs available were from January 2015 showing normal SCr of 1.01. No other admissions at this institution since January. Home medications listed as oxycodone, codeine, lactulose, and morphine. Interval History Patient remains intubated on ventilatory support. sister by bedside. Review of Systems General General Remarks Unobtainable secondary to patient's condition. Objective Data Data Vital Signs Date Time Temp Pulse Resp B/P (MAP) Pulse Ox O2 Delivery O2 Flow Rate FiO2 11/10/17 14:00 63 11/10/17 12:00 60 11/10/17 12:00 98.6 60 22 105/55 (72) 98 11/10/17 11:51 99 40 11/10/17 10:00 60 11/10/17 08:21 98 40 11/10/17 08:00 99.4 66 22 113/56 (75) 98 11/10/17 08:00 66 11/10/17 07:00 97 Mechanical Ventilator 40 11/10/17 06:00 88 11/10/17 04:30 98 40 11/10/17 04:00 66 11/10/17 04:00 98.6 66 22 128/63 (84) 99 11/10/17 02:00 64 11/10/17 00:10 100 40 11/10/17 00:00 98.7 76 22 110/53 (72) 99 11/10/17 00:00 76 11/09/17 22:00 70 11/09/17 20:09 100 40 11/09/17 20:00 100 Mechanical Ventilator 50 11/09/17 20:00 68 11/09/17 20:00 98.6 68 22 118/56 (76) 100 11/09/17 18:00 71 11/09/17 16:00 73 11/09/17 16:00 98.8 73 22 117/57 (77) 100 11/09/17 15:47 100 40 -: 11/09/17 0149 11/09/17 0149 Physical Exam General Appearance: Obese Eyes Eye Exam: Sclera White Neck Neck Exam: Trachea Midline Pulmonary Resp Exam: Clear Bilaterally, Decreased Bases Cardiology CV Exam: Regular, Normal Sinus Rhythm Gastrointestinal/Abdomen GI Exam: Soft, Non-Tender, Distended Integumentary Skin Exam: Clear, Warm, Normal Turgor Extremeties Extremities Exam: Trace Edema Assessment/Plan Discussed Condition With: Sibling Problem List: (1) Acute renal failure (ARF) ICD Codes: N17.9 - Acute kidney failure, unspecified Plan: Patient maintaining fair urine output and the renal indices are improving albeit slowly. Hepatic enzymes however deteriorating and the patient is at risk for developing hepatorenal syndrome as discussed with his sister. Patient's sister indicated that the patient would not want continued aggressive care if there is no significant improvement and definitely not dialysis. Given comorbidities patient's prognosis is still guarded and he remains critically ill. Continue on IVF with bicarbonate to improve acid/base status. Medications should be adjusted for the patient's renal decline. Avoid nephrotoxins such as iodinated contrast dyes and NSAIDs. Avoid gadolinium. (2) Anemia ICD Codes: D64.9 - Anemia, unspecified Plan: Potential EGD in the AM. Received blood today. (3) Acidosis, metabolic ICD Codes: E87.2 - Acidosis Plan: Continue on bicarbonate IV (4) Cirrhosis ICD Codes: K74.60 - Cirrhosis Status: Chronic (5) Hepatitis C ICD Codes: B19.20 - Hepatitis C Status: Chronic Plan: As above, check UPCR, cryoglobulins Oziel Saul MD Nov 10, 2017 15:32
--- NOTE | 2017-11-10 15:43 | HHI.GIFU ---
Subjective Remarks Pt intubated on vent. Maroon liquid stool in bag. (Ria Cole SHOVE UP) Objective Vitals I&O Vital Signs Date Time Temp Pulse Resp B/P (MAP) Pulse Ox O2 Delivery O2 Flow Rate FiO2 11/10/17 14:00 63 11/10/17 12:00 60 11/10/17 12:00 98.6 60 22 105/55 (72) 98 11/10/17 11:51 99 40 11/10/17 10:00 60 11/10/17 08:21 98 40 11/10/17 08:00 99.4 66 22 113/56 (75) 98 11/10/17 08:00 66 11/10/17 07:00 97 Mechanical Ventilator 40 11/10/17 06:00 88 11/10/17 04:30 98 40 11/10/17 04:00 66 11/10/17 04:00 98.6 66 22 128/63 (84) 99 11/10/17 02:00 64 11/10/17 00:10 100 40 11/10/17 00:00 98.7 76 22 110/53 (72) 99 11/10/17 00:00 76 11/09/17 22:00 70 11/09/17 20:09 100 40 11/09/17 20:00 100 Mechanical Ventilator 50 11/09/17 20:00 68 11/09/17 20:00 98.6 68 22 118/56 (76) 100 11/09/17 18:00 71 11/09/17 16:00 73 11/09/17 16:00 98.8 73 22 117/57 (77) 100 11/09/17 15:47 100 40 I/O 11/09/17 11/09/17 11/09/17 11/10/17 11/10/17 11/10/17 07:00 15:00 23:00 07:00 15:00 23:00 Intake Total 300 ml 791 ml 1243 ml Output Total 1000 ml 1150 ml 1300 ml Balance -1000 ml 300 ml -359 ml -57 ml Intake IV Total 300 ml 791 ml 1183 ml Other 0 ml 60 ml Output Urine Total 1000 ml 900 ml 800 ml Stool Total 250 ml 500 ml # Bowel Movements 2 Laboratory Laboratory Tests Test 11/09/17 19:21 Blood Gas Puncture Site RT RADIAL Blood Gas Patient Temperature 98.6 Blood Gas HCO3 15 Blood Gas Base Excess -10.4 Blood Gas Oxygen Saturation 97 Arterial Blood pH 7.25 Arterial Blood Partial Pressure CO2 36 Arterial Blood Partial Pressure O2 427 Arterial Blood Oxygen Content 10.5 Arterial Blood Carboxyhemoglobin 1.7 Arterial Blood Methemoglobin 1.4 Blood Gas Hemoglobin 6.8 Oxygen Delivery Device VENT Blood Gas Ventilator Setting SEE COMMENTS Blood Gas Inspired Oxygen 100 Date/Time Source Procedure Growth Status 11/08/17 20:37 Blood Peripheral Aerobic Blood Culture - Preliminary NO GROWTH IN 2 DAYS Resulted 11/08/17 20:37 Blood Peripheral Anaerobic Blood Culture - Preliminary NO GROWTH IN 2 DAYS Resulted 11/09/17 00:50 Urine Catheterized Urine Urine Culture - Preliminary NO GROWTH IN 24 HOURS. Resulted Imaging Last Impressions Head CT 11/08/17 0000 Signed Impressions: Service Date/Time: Wednesday, November 08, 2017 14:26 - CONCLUSION: 1. No evidence of acute intracranial pathology. No masses are identified. Baldomero Stark MD Chest X-Ray 11/08/17 0000 Signed Impressions: Service Date/Time: Wednesday, November 08, 2017 18:51 - CONCLUSION: 1. ET tube in good position. 2. Gastric tube is high in position with the tip at the level of the clavicles. Bill Palmer MD Abdomen/Pelvis CT 11/08/17 0000 Signed Impressions: Service Date/Time: Wednesday, November 08, 2017 14:28 - CONCLUSION: 1. Cirrhosis. 2. Splenomegaly. 3. Cholelithiasis. Bill Blackburn Jr., MD Physical Exam HEENT: normocephalic; atraumatic; no jaundice. CHEST: wheezes CARDIAC: RRR ABDOMEN: Soft, distended, bowel sounds are present EXTREMITIES: No clubbing, cyanosis,BLE stasis changes, edema SKIN: Normal; no rash; no jaundice. 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 He is poor historian. cannot tell me when and if he had EGD or colonoscopy. INR is 1.7 - elevated NH - 262, started on QID lactulose - anemia - hgb 5.9 microcytic - hx cirrhosis, hep c, etoh abuse - thrombocytopenia 11/10/17 s/p EGD found large duodenal ulcer s/p epi inj. pt with maroon liquid stool in rectal bag. intubated now in [facility]. palliative care consulted PLT dropped from 283 to 77 PLAN - await palliative care eval - continue protonix gtt - monitor labs -supportive care pt seen by myself and Dr Anderson and this note is on his behalf (Ria Cole) Physician Comments Duodenal ulcer by EGD, blood seen rectally . For palliative care evaluation, will consider Colonoscopy if blood persists . Will follow up with you. (Sumit Anderson MD) Ria Cole Nov 10, 2017 15:43 Sumit Anderson MD Nov 11, 2017 06:55
[2017-11-11] VITALS (13 sets, daily range): BP systolic 74–113; BP diastolic 44–56; PULSE 54–117; RESP 22–27; TEMP 98.8–99.4; O2SAT 60–100
[2017-11-11] MEDS: RESP: ALBUTEROL 2.5 MG/IPRATROPIUM 0.5 MG NEB (SCH) INH ×3 (03:32→09:06)
[2017-11-11] MEDS: INSULIN NovoLIN REGULAR SUPPLEMENTAL SCALE SQ SCH ×3 (04:00→09:37)
[2017-11-11] MEDS: CHLORHEXIDINE GLUCONATE 2 % 1 PACK (2 CLOTHS) TOP SCH (04:00)
[2017-11-11] MEDS: SODIUM BICARBONATE 8.4% INJ 100 MEQ in DEXTROSE 5% IN WATE 1000ML INJ 1,000 ML IV SCH ×2 (04:47)
[2017-11-11] MEDS: PIPERACIL-TAZO 2.25 GM PREMIX 50 ML IV SCH (05:09)
[2017-11-11] MEDS: PROPOFOL 1000 MG/100 ML IV PRN ×4 (05:13→20:21)
[2017-11-11] MEDS: SODIUM CHLORIDE 0.9% FLUSH 10 ML FLUSH IV FLUSH SCH (08:10)
[2017-11-11] MEDS: DOCUSATE SODIUM 50 MG/SENNA 8.6 MG TAB PO SCH (08:11)
[2017-11-11] MEDS: RIFAXIMIN 550 MG TAB PO SCH (08:11)
[2017-11-11] MEDS: LACTULOSE SYRUP 20 GM/30 ML CUP PO SCH (09:00)
[2017-11-11] MEDS: PANTOPRAZOLE INJ 80 MG in SODIUM CHLORIDE 0.9% INJ 100 ML IV SCH (10:19)
[2017-11-11] MEDS ORDERED: LORazepam 2 MG/ML VIAL IV PUSH ONE ×2 (13:00→13:15)
[2017-11-11] MEDS ORDERED: HYDROmorphone HCL PF 2 MG/ML VIAL IV PUSH ONE ×2 (13:00→13:15)
[2017-11-11] MEDS ORDERED: HYOSCYAMINE 0.125 MG TAB PO/SL ONE (13:00)
--- NOTE | 2017-11-11 13:14 | HHI.HCPN ---
Reason for visit a. To assist with evaluation and management of symptoms including:dyspnea b. To assist medical decision maker(s) with: better understanding of current medical conditions; weighing benefits/burdens of medical treatment options; making medical treatment decisions. Subjective/Interval History Intubated, sedated. some grimacing at times. Family/friend interactions Discussed with health care proxy, pt's sister Yaneth about pt's condition. 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 This was conveyed to Yaneth. I offered sister continue managment of medical therapies, she feels base upon goals of care of brother, he would be angry that he is intubated and in the icu right now. She decide to honor her brother's wishes and transition to comfort measures only/ and compassionate extubation today. Exibits were signed. Yaneth notified family, and pt's niece. Objective Vital Signs Date Time Temp Pulse Resp B/P (MAP) Pulse Ox O2 Delivery O2 Flow Rate FiO2 11/11/17 12:00 96 40 11/11/17 12:00 99.0 75 22 110/53 (72) 96 11/11/17 12:00 77 11/11/17 10:00 73 11/11/17 09:10 97 40 11/11/17 08:00 55 11/11/17 08:00 99.2 55 22 102/51 (68) 97 11/11/17 07:00 97 Mechanical Ventilator 40 11/11/17 06:00 56 11/11/17 04:00 63 11/11/17 04:00 98.8 59 22 113/56 (75) 100 11/11/17 03:35 100 40 11/11/17 02:00 54 11/11/17 00:00 54 11/11/17 00:00 99.4 62 22 104/54 (71) 100 11/10/17 23:56 100 40 11/10/17 22:00 65 11/10/17 20:00 59 11/10/17 20:00 99.5 59 22 109/59 (76) 100 11/10/17 19:00 100 Mechanical Ventilator 40 11/10/17 18:00 58 11/10/17 16:00 98.2 60 22 108/52 (70) 100 11/10/17 16:00 60 11/10/17 15:56 99 40 11/10/17 14:00 63 Intake & Output 11/11/17 11/11/17 07:00 19:00 Intake Total 120 ml Output Total 450 ml Balance -330 ml Other 120 ml Output Urine Total 450 ml # Bowel Movements 1 Physical Exam CONSTITUTIONAL/GENERAL: This frail gentlemen, intubated and sedated TUBES/LINES/DRAINS: ET tube, grant. Rectal tube , bloody. SKIN: No jaundice, but pallor. HEAD: Atraumatic. Normocephalic. EYES: Pupils equal and round and reactive. Extraocular motions intact. No scleral icterus. No injection or drainage. Fundi not examined. ENT: . Nose without bleeding or purulent drainage. Throat ET tube NECK: Trachea midline. Supple, nontender. No palpable thyroid enlargement or nodularity. CARDIOVASCULAR: Regular rate and rhythm without murmurs, gallops, or rubs. No JVD. Peripheral pulses symmetric. RESPIRATORY/CHEST: Symmetric, unlabored respirations. Clear to auscultation. Breath sounds equal bilaterally. No wheezes, rales, or rhonchi. GASTROINTESTINAL: Abdomen soft, distended Hyeractive BS, GENITOURINARY: Without palpable bladder distension. Grant catheter in place. MUSCULOSKELETAL: Extremities edemetous LYMPHATICS: No palpable cervical or supraclavicular adenopathy. NEUROLOGICAL: Unresponsive . PSYCHIATRIC: could not evaluate given level of conciousness. Diagnostic Tests Laboratory Laboratory Tests Test 11/08/17 13:35 11/08/17 15:13 11/08/17 20:37 11/09/17 00:50 Blood Gas Puncture Site LT RADIAL Blood Gas Patient Temperature 98.6 Blood Gas HCO3 13 mmol/L (22-26) Blood Gas Base Excess -12.1 mmol/L (-2-2) Blood Gas Oxygen Saturation 92 % (90-100) Arterial Blood pH 7.30 (7.380-7.420) Arterial Blood Partial Pressure CO2 27 mmHg (38-42) Arterial Blood Partial Pressure O2 81 mmHG (61-120) Arterial Blood Oxygen Content 7.4 Vol % (12.0-20.0) Arterial Blood Carboxyhemoglobin 2.1 % (0-4) Arterial Blood Methemoglobin 0.7 % (0-2) Blood Gas Hemoglobin 5.6 G/DL (12.0-16.0) Oxygen Delivery Device ROOM AIR Blood Gas Inspired Oxygen 21 % Lactic Acid Level 6.3 mmol/L (0.4-2.0) 4.5 mmol/L (0.4-2.0) Prothrombin Time 17.4 SEC (9.8-11.6) Prothromb Time International Ratio 1.7 RATIO Blood Urea Nitrogen 76 MG/DL (7-18) Creatinine 4.44 MG/DL (0.60-1.30) Random Glucose 131 MG/DL (74-106) Total Protein 5.6 GM/DL (6.4-8.2) Calcium Level 7.2 MG/DL (8.5-10.1) Sodium Level 141 MEQ/L (136-145) Potassium Level 3.8 MEQ/L (3.5-5.1) Chloride Level 107 MEQ/L (98-107) Carbon Dioxide Level 17.2 MEQ/L (21.0-32.0) Anion Gap 17 MEQ/L (5-15) Estimat Glomerular Filtration Rate 13 ML/MIN (>89) Protein Corrected Calcium 8.0 MG/DL (8.5-10.1) Urine Color YELLOW (YELLW/STRAW) Urine Turbidity CLEAR (CLEAR) Urine pH 5.0 (5.0-8.5) Urine Specific [place] 1.020 (1.002-1.035) Urine Protein TRACE mg/dL (NEG-TRACE) Urine Glucose (UA) NEG mg/dL (NEG) Urine Ketones NEG mg/dL (NEG) Urine Occult Blood MOD (NEG) Urine Nitrite NEG (NEG) Urine Bilirubin NEG (NEG) Urine Urobilinogen LESS THAN 2.0 MG/DL (LESS Urine Leukocyte Esterase TRACE (NEG) Urine RBC 25 /hpf (0-3) Urine WBC 6 /hpf (0-5) Urine Squamous Epithelial Cells 1 /hpf (0-5) Urine Bacteria RARE /hpf (NONE) Urine Mucus FEW /lpf (OCC) Urine Yeast (Budding) RARE (NONE) Microscopic Urinalysis Comment CATH-CULTURE IND Urine Random Creatinine 119 MG/DL (27-300) Urine Random Total Protein 49 MG/DL (0-11.8) Urine Random Sodium 30 MEQ/L Urine Protein/Creatinine Ratio 0.41 (0.00-0.14) Urine Opiates Screen POS (NEG) Urine Barbiturates Screen NEG (NEG) Urine Amphetamines Screen NEG (NEG) Urine Benzodiazepines Screen POS (NEG) Urine Cocaine Screen NEG (NEG) Urine Cannabinoids Screen NEG (NEG) Test 11/09/17 01:49 11/09/17 19:21 White Blood Count 7.5 TH/MM3 (4.0-11.0) Red Blood Count 3.13 MIL/MM3 (4.50-5.90) Hemoglobin 7.9 GM/DL (13.0-17.0) Hematocrit 23.7 % (39.0-51.0) Mean Corpuscular Volume 75.7 FL (80.0-100.0) Mean Corpuscular Hemoglobin 25.3 PG (27.0-34.0) Mean Corpuscular Hemoglobin Concent 33.5 % (32.0-36.0) Red Cell Distribution Width 24.7 % (11.6-17.2) Platelet Count 77 TH/MM3 (150-450) Mean Platelet Volume 7.9 FL (7.0-11.0) Neutrophils (%) (Auto) 66.5 % (16.0-70.0) Lymphocytes (%) (Auto) 15.7 % (9.0-44.0) Monocytes (%) (Auto) 14.2 % (0.0-8.0) Eosinophils (%) (Auto) 2.2 % (0.0-4.0) Basophils (%) (Auto) 1.4 % (0.0-2.0) Neutrophils # (Auto) 5.0 TH/MM3 (1.8-7.7) Lymphocytes # (Auto) 1.2 TH/MM3 (1.0-4.8) Monocytes # (Auto) 1.1 TH/MM3 (0-0.9) Eosinophils # (Auto) 0.2 TH/MM3 (0-0.4) Basophils # (Auto) 0.1 TH/MM3 (0-0.2) CBC Comment AUTO DIFF Differential Comment AUTO DIFF CONFIRMED Platelet Estimate LOW (NORMAL) Platelet Morphology Comment NORMAL (NORMAL) Ovalocytes 2+ (NORMAL) Prothrombin Time 16.8 SEC (9.8-11.6) Prothromb Time International Ratio 1.7 RATIO Blood Urea Nitrogen 76 MG/DL (7-18) Creatinine 4.22 MG/DL (0.60-1.30) Random Glucose 116 MG/DL (74-106) Total Protein 5.7 GM/DL (6.4-8.2) Albumin 2.6 GM/DL (3.4-5.0) Calcium Level 7.2 MG/DL (8.5-10.1) Alkaline Phosphatase 63 U/L (45-117) Aspartate Amino Transf (AST/SGOT) 673 U/L (15-37) Alanine Aminotransferase (ALT/SGPT) 319 U/L (12-78) Total Bilirubin 1.8 MG/DL (0.2-1.0) Sodium Level 141 MEQ/L (136-145) Potassium Level 3.7 MEQ/L (3.5-5.1) Chloride Level 107 MEQ/L (98-107) Carbon Dioxide Level 21.6 MEQ/L (21.0-32.0) Anion Gap 12 MEQ/L (5-15) Estimat Glomerular Filtration Rate 14 ML/MIN (>89) Protein Corrected Calcium 7.9 MG/DL (8.5-10.1) Ammonia 35 MCMOL/L (11-32) Blood Gas Puncture Site RT RADIAL Blood Gas Patient Temperature 98.6 Blood Gas HCO3 15 mmol/L (22-26) Blood Gas Base Excess -10.4 mmol/L (-2-2) Blood Gas Oxygen Saturation 97 % (90-100) Arterial Blood pH 7.25 (7.380-7.420) Arterial Blood Partial Pressure CO2 36 mmHg (38-42) Arterial Blood Partial Pressure O2 427 mmHg (61-120) Arterial Blood Oxygen Content 10.5 Vol % (12.0-20.0) Arterial Blood Carboxyhemoglobin 1.7 % (0-4) Arterial Blood Methemoglobin 1.4 % (0-2) Blood Gas Hemoglobin 6.8 G/DL (12.0-16.0) Oxygen Delivery Device VENT Blood Gas Ventilator Setting SEE COMMENTS Blood Gas Inspired Oxygen 100 % Result Diagram: 11/09/17 0149 11/09/17 0149 Microbiology Microbiology Date/Time Source Procedure Growth Status 11/08/17 20:37 Blood Peripheral Aerobic Blood Culture - Preliminary NO GROWTH IN 3 DAYS Resulted 11/08/17 20:37 Blood Peripheral Anaerobic Blood Culture - Preliminary NO GROWTH IN 3 DAYS Resulted 11/08/17 20:30 Blood Peripheral Aerobic Blood Culture - Preliminary NO GROWTH IN 3 DAYS Resulted 11/08/17 20:30 Blood Peripheral Anaerobic Blood Culture - Preliminary NO GROWTH IN 3 DAYS Resulted 11/09/17 00:50 Urine Catheterized Urine Urine Culture - Final NO GROWTH IN 48 HOURS. Complete Assessment and Plan Disease Oriented Problem List: (1) Hepatitis C (2) Cirrhosis (3) Ascites (4) Acidosis, metabolic (5) Acute renal failure (ARF) Symptom Scale: Pertinent Non-Medical Issues Psychosocial: Spiritual: Legal: Ethical issues impacting care: Important Contacts Lilliana Musa . Prognosis Pt has ES cirrohsis. Prognosis is poor. Code Status: No Code Plan == [place]- no capacity to make medical decisions. == health care decision maker: pt is not . parents past away, no children. Pt has 2 sisters. Renea Musa and Lilliana Musa. Renea Musa has declined to participate to make medical decisions. Yaneth Musa is health care proxy. == dyspnea- prn dilaudid and ativan orderd for anxiety and shortness of breath associated with dyspnea. Family amenable for scheudule comfort meds to ensure comfort. == code: DNR/DNI. == goals of care: Tansition to comfort measures today/ compasionate withdraw of life support. Exhibits completed by family and physicians. == palliative care will continue to follow. Attestation To help prompt me to consider important information that might be impacting today's encounter and assessment, information from prior notes written by myself or my colleagues may have been "brought forward" into today's note. My signature on this note, however, is an attestation that I personally performed the exam, history, and/or decision-making noted today, and, unless otherwise indicated, the interactions with patient, family, and staff as well as the review of records all occurred today. I also attest that the listed assessment and stated plan reflect my best clinical judgment today based on the combination of historical information, prior notes, and today's exam/ interactions. When time spent is documented, it refers only to time spent today by the signer, or if indicated, combined time spent today by collaborating physician/nurse practitioner. Gio Appiah MD Nov 11, 2017 13:13
[2017-11-11] MEDS ORDERED: HYDROmorphone HCL PF 2 MG/ML VIAL IV PUSH PRN (13:30)
[2017-11-11] MEDS ORDERED: BISACODYL 10 MG SUPP RECTAL PRN (13:30)
[2017-11-11] MEDS ORDERED: ACETAMINOPHEN 650 MG SUPP PR PRN (13:30)
[2017-11-11] MEDS ORDERED: FUROSEMIDE 20 MG/2 ML VIAL IV PUSH PRN (13:30)
[2017-11-11] MEDS ORDERED: LORazepam 2 MG/ML VIAL IV PUSH PRN ×3 (13:30)
[2017-11-11] MEDS: HYDROmorphone HCL PF 2 MG/ML VIAL IV PUSH PRN ×2 (14:49→15:20)
--- NOTE | 2017-11-11 15:25 | HHI.GIFU ---
Subjective Remarks Pt now extubated, sister at bed side. Does not awaken to painful stimuli. (Kinza Hughes) Objective Vitals I&O Vital Signs Date Time Temp Pulse Resp B/P (MAP) Pulse Ox O2 Delivery O2 Flow Rate FiO2 11/11/17 12:00 96 40 11/11/17 12:00 99.0 75 22 110/53 (72) 96 11/11/17 12:00 77 11/11/17 10:00 73 11/11/17 09:10 97 40 11/11/17 08:00 55 11/11/17 08:00 99.2 55 22 102/51 (68) 97 11/11/17 07:00 97 Mechanical Ventilator 40 11/11/17 06:00 56 11/11/17 04:00 63 11/11/17 04:00 98.8 59 22 113/56 (75) 100 11/11/17 03:35 100 40 11/11/17 02:00 54 11/11/17 00:00 54 11/11/17 00:00 99.4 62 22 104/54 (71) 100 11/10/17 23:56 100 40 11/10/17 22:00 65 11/10/17 20:00 59 11/10/17 20:00 99.5 59 22 109/59 (76) 100 11/10/17 19:00 100 Mechanical Ventilator 40 11/10/17 18:00 58 11/10/17 16:00 98.2 60 22 108/52 (70) 100 11/10/17 16:00 60 11/10/17 15:56 99 40 I/O 11/10/17 11/10/17 11/10/17 11/11/17 11/11/17 11/11/17 06:59 14:59 22:59 06:59 14:59 22:59 Intake Total 1243 ml 60 ml 120 ml Output Total 1300 ml 1450 ml 450 ml Balance -57 ml -1390 ml -330 ml Intake IV Total 1183 ml Other 60 ml 60 ml 120 ml Output Urine Total 800 ml 900 ml 450 ml Stool Total 500 ml 550 ml # Bowel Movements 1 1 Laboratory Date/Time Source Procedure Growth Status 11/08/17 20:37 Blood Peripheral Aerobic Blood Culture - Preliminary NO GROWTH IN 3 DAYS Resulted 11/08/17 20:37 Blood Peripheral Anaerobic Blood Culture - Preliminary NO GROWTH IN 3 DAYS Resulted 11/09/17 00:50 Urine Catheterized Urine Urine Culture - Final NO GROWTH IN 48 HOURS. Complete Imaging Last Impressions Head CT 11/08/17 Signed Impressions: Service Date/Time: Wednesday, November 08, 2017 14:26 - CONCLUSION: 1. No evidence of acute intracranial pathology. No masses are identified. Baldomero Stark MD Chest X-Ray 11/08/17 Signed Impressions: Service Date/Time: Wednesday, November 08, 2017 18:51 - CONCLUSION: 1. ET tube in good position. 2. Gastric tube is high in position with the tip at the level of the clavicles. Bill Palmer MD Abdomen/Pelvis CT 11/08/17 Signed Impressions: Service Date/Time: Wednesday, November 08, 2017 14:28 - CONCLUSION: 1. Cirrhosis. 2. Splenomegaly. 3. Cholelithiasis. Bill Blackburn Jr., MD Physical Exam HEENT: Normocephalic; atraumatic CHEST: Shallow, coarse BS ABDOMEN: Distended, soft, diaphragmatic breathing, bowel sounds active SKIN: Pale (Kinza Hughes) Assessment and Plan Plan ASSESSMENT - hematemesis, black tarry stool, rectal bleeding - onset yesterday per pt. He is poor historian. cannot tell me when and if he had EGD or colonoscopy. INR is 1.7 - elevated NH - 262, started on QID lactulose - anemia - hgb 5.9 microcytic - hx cirrhosis, hep c, etoh abuse - thrombocytopenia 11/10/17 s/p EGD found large duodenal ulcer s/p epi inj. pt with maroon liquid stool in rectal bag. intubated now in [facility]. palliative care consulted PLT dropped from 283 to 77 (11/11) --> Pt now extubated, family has decided on comfort measures only. Our service will sign off. Please reconsult as needed. Pt has been seen and examined by myself and Dr. Anderson and this note is written on his behalf (Kinza Hughes) Physician Comments As above. Please notify us if needed. (Sumit Anderson MD) Kinza Hughes Nov 11, 2017 15:25 Sumit Anderson MD Nov 12, 2017 06:25
[2017-11-11] MEDS: HYDROmorphone HCL PF 2 MG/ML VIAL IV PUSH SCH ×2 (15:53→20:00)
[2017-11-11] MEDS: LORazepam 2 MG/ML VIAL IV PUSH SCH ×2 (15:53→20:00)
[2017-11-11] MEDS: HYOSCYAMINE 0.5 MG/ML AMP IV PUSH PRN ×2 (15:54→23:08)
--- NOTE | 2017-11-11 17:51 | HHI.CCPN ---
Subjective Remarks/Hospital Course 11/09: I had a long discussion with the patient's hospice doctor today. Apparently the patient has been in hospice for some time and is followed on a fairly regular basis. The hospice doctor states today to me that he did not want his acute hepatitis C treated and has been living at home with comfort oriented goals for at least the last year. The hospice doctor told me that she would get in touch with the patient's to sisters and make sure everyone is on the same page, but based on her conversation, it does not sound that the patient would want aggressive measures. In addition GI scope the patient and found a bleeding duodenal ulcer. This was intervened upon, however the patient still has coagulopathy secondary to liver disease, a high meld, and multiorgan failure including respiratory failure requiring mechanical ventilation. Patient remains critically ill with minimal improvements. 11/10: still no meaningful improvements. palliative to see today. will attempt to get back in touch with the patient's hospice physician. hospice is most appropriate right now. 11/11: family requests hospice, which is appropriate. terminally extubated. Objective Vital Signs Date Time Temp Pulse Resp B/P (MAP) Pulse Ox O2 Delivery O2 Flow Rate FiO2 11/11/17 16:00 101 11/11/17 16:00 27 96/53 (67) 60 11/11/17 12:00 40 11/11/17 12:00 99.0 11/11/17 07:00 Mechanical Ventilator 11/08/17 17:56 3.00 Intake and Output 11/11/17 11/11/17 11/12/17 08:00 16:00 00:00 Intake Total 120 ml Output Total 450 ml Balance -330 ml Result Diagram: 11/09/17 0149 11/09/17 0149 Other Results Microbiology Date/Time Source Procedure Growth Status 11/09/17 00:50 Urine Catheterized Urine Urine Culture - Final NO GROWTH IN 48 HOURS. Complete Objective Remarks GENERAL: Middle-aged male, lying in bed, intubated, sedated, critically ill HEENT: Normocephalic. Atraumatic. Pupils equal, round, reactive, conjugate. Mucous membranes are moist NECK: Trachea is midline. There is no JVD. CHEST: Equal chest rise. Mechanically ventilated. CARDIOVASCULAR: Normal rate, regular rhythm. Sinus by telemetry ABDOMEN: Soft, nontender, mildly distended. Positive fluid wave. No guarding. MUSCULOSKELETAL: Pulses 2+. No peripheral edema. NEUROLOGICAL: RASS -3. Withdraws to pain. Does not follow commands. A/P Assessment and Plan Assessment: 67-year-old male with acute upper GI bleed and respiratory failure requiring mechanical ventilation. Remains critically ill. Remains with severe coagulopathy secondary to end-stage liver disease, acute shock liver, respiratory failure, anemia secondary to acute blood loss, end-stage liver disease. After discussions with the patient's own hospice doctor, likely this is not incongruence with the patient's stated wishes. Plan to transition to hospice and comfort measures. Active problems: Hepatic encephalopathy Acute hypoxic and hypercarbic respiratory failure Active upper GI bleed End-stage liver disease Coagulopathy secondary to acute liver disease Acute protein calorie malnutrition: Severe Thrombocytopenia secondary to end-stage liver disease and splenic sequestration Shock liver Anemia secondary to acute blood loss Plan: palliative comfort measures ativan, morphine prn likely transition to hospice in AM. Norbert Theodore MD Nov 11, 2017 17:51
[2017-11-12] MEDS: LORazepam 2 MG/ML VIAL IV PUSH SCH ×4 (00:42→12:00)
[2017-11-12] MEDS: HYDROmorphone HCL PF 2 MG/ML VIAL IV PUSH SCH ×4 (00:44→12:00)
[2017-11-12] MEDS: PROPOFOL 1000 MG/100 ML IV PRN (04:10)
[2017-11-12 07:15] VITALS: PULSE 66
[2017-11-12 08:00] VITALS: BP 77/41; PULSE 71; RESP 15; TEMP 100.8; O2SAT 92
[2017-11-12] MEDS: HYDROmorphone HCL PF 2 MG/ML VIAL IV PUSH PRN (12:05)
--- NOTE | 2017-11-12 22:45 | PQ ---
Physician Query Response Document PATIENT: YVES JAVIER : 1950 ADMIT DATE: 11/08/2017 1:15 PM DISCH DATE: 11/12/2017 2:57 PM RESPONDING PROVIDER #: venessa QUERY TEXT: Clarification of Clinical Diagnostic Findings Acute respiratory failure, POA, in the setting of GI bleed and multiorgan failure requiring treatment initially with oxygen via non reabreather and emergency intubation and mechanical ventilation. Other explanation of clinical findings. Unable to determine (no explanation for clinical findings). Please clarify and document your clinical opinion in the progress notes and discharge summary includi ng the definitive and/or presumptive diagnosis (suspected or probable), related to the above clinical findings. Please include clinical findings supporting your diagnosis. Thank you, Andressa Edwards CDS: Andressa Edwards Patient Unit: [id number] Contact Number: Room: 1321 The patient's Clinical Indicators include: * Clinical Indicators: EMS reports respiratory distress, respirations labored at 26, O2 sats 92% on R A, ABG's in ED:HCO3: 13, pH: 7.3, pCO2: 27 Hgb: 5.6 * Risk Factors: GI bleed, Acute blood loss anemia, multiorgan failure * Treatment: Initial treatment with non-rebreather at 15L via EMS, emergency intubation with diesel engine mechanic apprentice al ventilation Query created by: Andressa Edwards on 11/11/2017 12:00 AM RESPONSE TEXT: The patient's diagnoses include: Massive upper GI bleeding secondary to bleeding ulcer, secondary to end-stage liver disease. Acute hypoxic and hypercarbic respiratory failure secondary to aspiration of blood Acute on chronic end-stage liver disease based on rising LFTs, coags while inpatient Anemia secondary to acute blood loss- anemia with active bleeding Coagulopathy secondary to end-stage liver disease- elevated INR in the setting of liver disease with active bleeding Acute kidney injury secondary to shock Hemorrhagic Shock secondary to bleeding from GI bleed Acute hepatic encephalopathy - elevated ammonia with altered mental status Acute protein calorie malnutrition, severe- physical exam and hypoalbuminemia c/w severe malnutrition . Electronically signed by: Norbert Theodore MD 11/12/2017 10:41 PM
[2017-11-13 23:52] LABS: CRYOGLOBULIN QUALITATIVE POSITIVE (NEGATIVE)
--- NOTE | 2017-11-15 13:37 | PQ ---
Physician Query Response Document PATIENT: YVES JAVIER : 1950 ADMIT DATE: 11/08/2017 1:15 PM DISCH DATE: 11/12/2017 2:57 PM RESPONDING PROVIDER #: angel QUERY TEXT: Clarification of Clinical Diagnostic Findings Acute respiratory failure was first documented on 11/09, patient was intubated on 11/08. Can you please indicate if Acute Respiratory Failure was present on admission or not present on admission? Acute respiratory failure, POA, in the setting of GI bleed and multiorgan failure requiring treatment initially with oxygen via non reabreather and emergency intubation and mechanical ventilation. Other explanation of clinical findings. Unable to determine (no explanation for clinical findings). Please clarify and document the POA status for acute respiratory failure in the progress notes and di scharge summary including the definitive and/or presumptive diagnosis (suspected or probable), relate d to the above clinical findings. Please include clinical findings supporting your diagnosis. Thank you, Andressa Edwards CDS: Andressa Edwards Patient Unit: [id number] Contact Number: Room: 1321 The patient's Clinical Indicators include: The patient's Clinical Indicators include: * Clinical Indicators: EMS reports respiratory distress, respirations labored at 26, O2 sats 92% on R A, ABG's in ED:HCO3: 13, pH: 7.3, pCO2: 27 Hgb: 5.6 * Risk Factors: GI bleed, Acute blood loss anemia, multiorgan failure * Treatment: Initial treatment with non-rebreather at 15L via EMS, emergency intubation with conduit mechanic al ventilation Query created by: Andressa Edwards on 11/15/2017 12:00 AM RESPONSE TEXT: Resp failure Present on admission Electronically signed by: Dianna Matos MD 11/15/2017 1:33 PM
== END 2017-11-12 14:57 | disposition hospice, inpatient (51) | DRG 377 ==
LOC: NEPC 10:15 → NEDA 13:15 → N03B 16:12
PROVIDERS: ADMIT Internal Medicine Critical Care Medicine; ATTEND Internal Medicine Critical Care Medicine
PROC: 0BH17EZ Insertion of Endotracheal Airway into Trachea, Via Natural or Artificial Opening (ICD-10-PCS; principal; 2017-11-08)
PROC: 5A1945Z Respiratory Ventilation, 24-96 Consecutive Hours (ICD-10-PCS; 2017-11-08)
PROC: 30233K1 Transfusion of Nonautologous Frozen Plasma into Peripheral Vein, Percutaneous Approach (ICD-10-PCS; 2017-11-08)
PROC: 30233N1 Transfusion of Nonautologous Red Blood Cells into Peripheral Vein, Percutaneous Approach (ICD-10-PCS; 2017-11-08)
PROC: 0W3P8ZZ Control Bleeding in Gastrointestinal Tract, Via Natural or Artificial Opening Endoscopic (ICD-10-PCS; 2017-11-09)
DX: K26.4 Chronic or unspecified duodenal ulcer with hemorrhage (principal); J96.01 Acute respiratory failure with hypoxia; R57.8 Other shock; E43 Unspecified severe protein-calorie malnutrition; N17.9 Acute kidney failure, unspecified; E87.2 Acidosis; J96.02 Acute respiratory failure with hypercapnia; K70.31 Alcoholic cirrhosis of liver with ascites; D68.4 Acquired coagulation factor deficiency; R16.1 Splenomegaly, not elsewhere classified; D62 Acute posthemorrhagic anemia; K70.40 Alcoholic hepatic failure without coma; R00.0 Tachycardia, unspecified; D72.829 Elevated white blood cell count, unspecified; B19.20 Unspecified viral hepatitis C without hepatic coma; K80.20 Calculus of gallbladder without cholecystitis without obstruction; M41.9 Scoliosis, unspecified; F10.10 Alcohol abuse, uncomplicated; F41.9 Anxiety disorder, unspecified; Z51.5 Encounter for palliative care; Z66 Do not resuscitate; Z88.6 Allergy status to analgesic agent
CPT/HCPCS: 36430; 36600; 70450; 71045; 74176; 80048; 80053; 80307; 81001; 82140; 82570; 82595; 82805; 82948; 83605; 83690; 84155; 84156; 84300; 84484; 85025; 85610; 85730; 86850; 86900; 86901; 86920; 86927; 87040; 87086; 93005; 94002; 94003; 94640; 94664; 96365; 96368; 96375; C9113; J0610; J1170; J1980; J2060; J2250; J2354; J2405; J2543; J7030; J7040; J7050; J7070; P9016; P9017